=== PATIENT | male | born 1970 | race Caucasian/White ===

== ENCOUNTER 2025-03-07 14:32 | Outpatient (AMB) | payer OTHER, SELFPAY ==
--- OUTSIDE RECORDS SUMMARY | 2025-03-06 14:44 | XMS_ITS | Encounter Summary ---
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 Phone MedinaadystephonPhan rueda Primary Care Provider [phone] Reason for Referral * Imaging (Routine) - Authorized Specialty Diagnoses / Procedures Referred By Contac t Referred To Contact Radiology Diagnoses Adenocarcinoma of right lung, stage 4 (CMS/HCC V24, CMS/HCC V28) Procedures CT Chest/Abdomen/Pelvis w Contrast Esau Stevens MD [address] [place] [address] Phone: tel: fax: [address] [address] Phone: tel: Referral ID Status Reason Start Date Expiration Date V isits Requested Visits Authorized [id number] Authorized 02/15/2025 02/15/2026 1 1 Reason for Visit * Imaging (Routine) - Authorized Specialty Diagnoses / Procedures Referred By Contac t Referred To Contact Radiology Diagnoses Adenocarcinoma of right lung, stage 4 (CMS/HCC V24, CMS/HCC V28) Procedures CT Chest/Abdomen/Pelvis w Contrast Esau Stevens MD [address] [place] [address] Phone: tel: fax: [facility] [address] [place] [address] Phone: tel: Referral ID Status Reason Start Date Expiration Date V isits Requested Visits Authorized [id number] Authorized 02/15/2025 02/15/2026 1 1 Encounter Details Date Type Department Care Team (Latest Contact Info) Description 03/06/2025 2:44 PM EDT - 03/06/2025 11:59 PM EDT Hospital Encounter [facility] CT Scan [address] [place] [address] Adenocarcinoma of right lung, stage 4 (CMS/HCC V24, CMS/HCC V28) Discharge Disposition: Home or Self Care Social History Tobacco Use Types Packs/Day Years [...] PM EST documented as of this encounter Medications at Time of Discharge acetaminophen (TYLENOL) 500 mg tablet Take 2 tablets (1,000 mg total) by mouth every 6 (six) hours if needed for mild pain. albuterol HFA (PROAIR HFA ; PROVENTIL HFA ; VENTOLIN HFA) 90 mcg/actuation inhaler Inhale 2 puffs by mouth every 6 (six) hours if needed for wheezing or shortness of breath. 3 each 3 02/28/2025 amLODIPine (NORVASC) 10 mg tablet Take 1 tablet (10 mg total) by mouth 1 (one) time each day. aspirin 81 mg EC tablet Take 1 tablet (81 mg total) by mouth 1 (one) time each day. 09/27/2021 cetirizine (ZyrTEC) 10 mg tablet Take 1 tablet (10 mg total) by mouth 1 (one) time each day. 04/24/2020 clonazePAM (KlonoPIN) 0.5 mg tablet Take 1 tablet (0.5 mg total) by mouth 2 times daily as needed. divalproex (DEPAKOTE) [address] tablet Take 2 tablets (1,000 mg total) by mouth 1 (one) time each day. folic acid (FOLVITE) 1 mg tablet TAKE 1 TABLET BY MOUTH EVERY DAY 90 tablet 1 11/30/2024 lisinopriL (PRINIVIL,ZESTRI L) 10 mg tablet Take 1 tablet (10 mg total) by mouth 1 (one) time each day. lovastatin (MEVACOR) 20 mg tablet Take 1 tablet (20 mg total) by mouth. oxyCODONE (ROXICODONE) 5 mg immediate release tabletIndication s:Adenocarcinoma of right lung, stage 4 (CMS/HCC V24, CMS/HCC V28) Take 1 tablet (5 mg total) by mouth every 6 (six) hours if needed for severe pain. Cancer patient with pain, partial fill allowed Max Daily Amount: 20 mg 80 tablet 07/01/2024 documented as of this encounter Discharge Disposition Disposition Code Departure Means Destination Home or Self Care documented in this encounter Plan of Treatment Upcoming Encounters Date Type Department Care Team (Late st Contact Info) Description 03/09/2025 3:45 PM EDT Office Visit [facility] Hematology Oncology [address] [place] [phone] Esau Stevens MD [address] [place] [address] 03/10/2025 8:00 AM EDT Appointment [address] [address] 03/31/2025 8:00 AM EDT Appointment [address] [address] 08/29/2025 2:45 PM EST Ancillary Procedure Pulmonol - [place] [address] [facility] [address] [place] [phone] 08/29/2025 3:30 PM EST Office Visit Pulmonolgy - [place] [address] [facility] [address] [place] [address] Jessica Magana MD [address] [facility] [address] [place] [address] documented as of this encounter Procedures Procedure Name Priority Date/Time Associated Diagnosis Comments CT CHEST/ABDOMEN/PELVI S W CONTRAST Routine 03/06/2025 3:21 PM EDT Adenocarcinoma of right lung, stage 4 (CMS/HCC V24, CMS/HCC V28) documented in this encounter Results * CT Chest/Abdomen/Pelvis w Contrast (03/06/2025 3:21 PM EDT) Anatomical Region Laterality Modality Body Computed Tomogra phy 03/07/2025 11:5 0 AM EDT Impressions 03/07/2025 12:20 PM EDT There is an irregular solid mass with spicules extending to the pleural reflection in the right upper lobe. The solid component has slightly increased in size. Fissural lymph nodes are not measurably enlarged but have increased. The known pleural metastasis is not measurable. Stable retrocaval pretracheal lymph node. No measurable disease in the abdomen or pelvis. Bilateral right greater than left femoral head avascular necrosis. -------- FINAL REPORT -------- Dictated By: Reji Petersen Dictated Date: 03/07/2025 11:50 ET Assigned Physician: Reji Petersen Reviewed and Electronically Signed By: Reji Petersen Signed Date: 03/07/2025 12:20 ET Workstation ID: [id number] Transcribed By: Self Edit Transcribed Date: 03/07/2025 11:50 ET Narrative 03/07/2025 12:20 PM EDT EXAMINATION: CT CHEST, ABDOMEN and PELVIS WITH CONTRAST CLINICAL INFORMATION: Metastatic lung cancer. Restaging. Right-sided VATS, right pleural biopsy and mediastinal lymphadenectomy on 02/15/[address] Cook and intraoperative findings included irregular pleural plaques on the posterior chest wall measuring up to 1.5 cm with satellite pleural plaques. Pathology revealed an invasive adenocarcinoma, morphologically and immunophenotypically compatible with the patient's lung primary, CK AE 1/3- positive, NLY-0-avdsslzs, y45-grszklwx, invading skeletal muscle focally and involving the cauterized and inked margins. A PD-L1 assay showed TPS 5. A KRAS exon 2 c.34G>T (p.G12 C) mutation was detected. EGFR, ALK, ROS-1, and BRAF alterations were not detected. 0 of 1 level R9 nodes were involved with tumor; 0 of 1 level R 8 nodes were involved with tumor; 0 of 1 level 7 nodes were involved with tumor; 0 of 1 level R4 nodes were involved with tumor. COMPARISON: Portions of previous 01/03/25 TECHNIQUE: Multidetector CT. Examination of the chest, abdomen and pelvis. Multidetector CT. Examination of the chest, abdomen and pelvis following IV administration of nonionic contrast. Reformatting in the coronal and sagittal planes. DLP: 1369 mGy-cm Dose optimization was performed including the use of low-dose iterative reconstruction technique with automatic exposure control based on patient size. Type of contrast: ISOVUE 370 Volume of IV contrast: 90 mL Volume of contrast discarded: 0 mL FINDINGS: LUNG: Irregular mostly solid mass posterior right upper lobe with spicules extending to the pleural reflections 03/06/25-3.2 x 1.8 cm () 01/03/25-2.9 x 1.7 cm (78) 07/21/24-2.2 x 1.3 cm () 11/26/23-2.5 x 1.2 cm (302/140) Subjectively, the solid component appears more prominent (). Slight pleural retraction. No suspicious abnormality of the trachea or mainstem bronchi. There is a broad-based pleural associated nodule at the confluence of the major and minor fissure on the right with a typical appearance of a lymph node. However, this has developed and/or increased 03/06/25-0.5 cm () 01/03/25-0.2 cm (3131) 07/21/24-not measurable 11/26/23-not measurable There is an adjacent similar but smaller nodule along the central aspect of the major fissure () There are some additional barely perceptible fissural lymph nodes more inferiorly in the midportion of the right major fissure (4/167) There are a few other scattered micronodules which are likely granulomata and are unchanged. MEDIASTINUM: Retrocaval pretracheal lymph node 02/04/25-1.2 cm (3/44) 01/03/25-1.2 cm 07/21/24-0.5 cm 11/26/23-0.5 cm There are a few additional nonenlarged but mildly prominent mediastinal lymph nodes. There are some mildly prominent right hilar lymph nodes (3/64) which are not significantly changed since most recent previous. CARDIAC: The heart is not enlarged. No pericardial fluid or thickening CORONARY CALCIFICATION: Moderate coronary calcification VASCULAR: There is no thoracic aortic aneurysm. The main pulmonary artery is normal caliber PLEURAL: Minimal areas of pleural thickening are not measurable. No convincing change. No significant pleural fluid or pneumothorax. AXILLA/CHEST WALL: There are no enlarged axillary lymph nodes. No chest wall mass demonstrated LIVER: No new suspicious focal liver lesion. Unchanged sharply circumscribed 1.0 cm low attenuating lesion in hepatic segment 2 is likely a cyst. No suspicious focal liver lesions. BILIARY TRACT: No opaque gallstone. No biliary dilation. SPLEEN: Normal size. No focal lesion. PANCREAS: No suspicious mass. No surrounding fluid. ADRENAL GLANDS: Unchanged mild nodularity at the apex of the right adrenal gland in the medial limb and apex of the left adrenal gland. KIDNEYS: No significant dilation of the intrarenal collecting system on either side. The kidneys enhance symmetrically. There is no suspicious renal mass. There is a nonobstructing 0.3 cm left renal calculus. GASTROINTESTINAL TRACT: Contrast has traversed the small bowel and entire colon. No definite bowel wall thickening. No suspicious abnormality the stomach. No omental or mesenteric mass. URINARY BLADDER: Mildly to moderately distended. No focal abnormality. PELVIC VISCERA: No suspicious abnormality. Unchanged calcifications base of penis. ABDOMINAL WALL: No significant hernia is appreciated. Small amount of fat protrudes into the umbilicus. LYMPHOVASCULAR STRUCTURES AND FLUID: There is no abdominal aortic aneurysm. There is arterial calcification. There are no measurably enlarged lymph nodes in the abdomen or pelvis. There is no free intraperitoneal fluid. MUSCULOSKELETAL: No acute or suspicious osseous abnormality. Avascular necrosis without significant collapse right greater than left femoral heads. Procedure Note Reji Petersen MD - 03/07/2025 EXAMINATION: CT CHEST, ABDOMEN and PELVIS WITH CONTRAST CLINICAL INFORMATION: Metastatic lung cancer. Restaging. Right-sided VATS, right pleuralbiopsy and mediastinal lymphadenectomy on 02/15/[address] Cook andintraoperative findings included irregular pleural plaques on theposterior chest wall measuring up to 1.5 cm with satellite pleuralplaques. Pathology revealed an invasive adenocarcinoma, morphologicallyand immunophenotypically compatible with the patient's lung primary, CK AE1/3-positive, ZIC-8-mgawqrnb, a60-mqtzsmut, invading skeletal musclefocally and involving the cauterized and inked margins. A PD-L1 assayshowed TPS 5. A KRAS exon 2 c.34G>T (p.G12 C) mutation was detected. EGFR,ALK, ROS-1, and BRAF alterations were not detected. 0 of 1 level R9 nodeswere involved with tumor; 0 of 1 level R 8 nodes were involved with tumor;0 of 1 level 7 nodes were involved with tumor; 0 of 1 level R4 nodes wereinvolved with tumor. COMPARISON: Portions of previous 01/03/25 TECHNIQUE: Multidetector CT. Examination of the chest, abdomen and pelvis. Multidetector CT. Examination of the chest, abdomen and pelvis followingIV administration of nonionic contrast. Reformatting in the coronal and sagittal planes. DLP: 1369 mGy-cm Dose optimization was performed including the use of low-dose iterativereconstruction technique with automatic exposure control based on patientsize. Type of contrast: ISOVUE 370 Volume of IV contrast: 90 mL Volume of contrast discarded: 0 mL FINDINGS: LUNG: Irregular mostly solid mass posterior right upper lobe with spiculesextending to the pleural reflections 03/06/25-3.2 x 1.8 cm () 01/03/25-2.9 x 1.7 cm () 07/21/24-2.2 x 1.3 cm () 11/26/23-2.5 x 1.2 cm (302/140) Subjectively, the solid component appears more prominent (/). Slightpleural retraction. No suspicious abnormality of the trachea or mainstem bronchi. There is a broad-based pleural associated nodule at the confluence of themajor and minor fissure on the right with a typical appearance of a lymphnode. However, this has developed and/or increased 03/06/25-0.5 cm (4/136) 01/03/25-0.2 cm (3/131) 07/21/24-not measurable 11/26/23-not measurable There is an adjacent similar but smaller nodule along the central aspectof the major fissure (4/135) There are some additional barely perceptible fissural lymph nodes moreinferiorly in the midportion of the right major fissure (4/167) There are a few other scattered micronodules which are likely granulomataand are unchanged. MEDIASTINUM: Retrocaval pretracheal lymph node 02/04/25-1.2 cm (3/44) 01/03/25-1.2 cm 07/21/24-0.5 cm 11/26/23-0.5 cm There are a few additional nonenlarged but mildly prominent mediastinallymph nodes. There are some mildly prominent right hilar lymph nodes(3/64) which are not significantly changed since most recent previous. CARDIAC: The heart is not enlarged. No pericardial fluid or thickening CORONARY CALCIFICATION: Moderate coronary calcification VASCULAR: There is no thoracic aortic aneurysm. The main pulmonary arteryis normal caliber PLEURAL: Minimal areas of pleural thickening are not measurable. Noconvincing change. No significant pleural fluid or pneumothorax. AXILLA/CHEST WALL: There are no enlarged axillary lymph nodes. No chestwall mass demonstrated LIVER: No new suspicious focal liver lesion. Unchanged sharplycircumscribed 1.0 cm low attenuating lesion in hepatic segment 2 is likelya cyst. No suspicious focal liver lesions. BILIARY TRACT: No opaque gallstone. No biliary dilation. SPLEEN: Normal size. No focal lesion. PANCREAS: No suspicious mass. No surrounding fluid. ADRENAL GLANDS: Unchanged mild nodularity at the apex of the right adrenalgland in the medial limb and apex of the left adrenal gland. KIDNEYS: No significant dilation of the intrarenal collecting system oneither side. The kidneys enhance symmetrically. There is no suspiciousrenal mass. There is a nonobstructing 0.3 cm left renal calculus. GASTROINTESTINAL TRACT: Contrast has traversed the small bowel and entirecolon. No definite bowel wall thickening. No suspicious abnormality thestomach. No omental or mesenteric mass. URINARY BLADDER: Mildly to moderately distended. No focal abnormality. PELVIC VISCERA: No suspicious abnormality. Unchanged calcifications baseof penis. ABDOMINAL WALL: No significant hernia is appreciated. Small amount of fatprotrudes into the umbilicus. LYMPHOVASCULAR STRUCTURES AND FLUID: There is no abdominal aorticaneurysm. There is arterial calcification. There are no measurably enlarged lymph nodes in the abdomen or pelvis. There is no free intraperitoneal fluid. MUSCULOSKELETAL: No acute or suspicious osseous abnormality. Avascularnecrosis without significant collapse right greater than left femoralheads. IMPRESSION: There is an irregular solid mass with spicules extending to the pleuralreflection in the right upper lobe. The solid component has slightly increased in size. Fissural lymph nodes are not measurably enlarged but have increased. Theknown pleural metastasis is not measurable. Stable retrocaval pretracheal lymph node. No measurable disease in the abdomen or pelvis. Bilateral right greater than left femoral head avascular necrosis. -------- FINAL REPORT -------- Dictated By: Reji Petersen Dictated Date: 03/07/2025 11:50 ET Assigned Physician: Reji Petersen Reviewed and Electronically Signed By: Reji Petersen Signed Date: 03/07/2025 12:20 ET Workstation ID: [id number] Transcribed By: Self Edit Transcribed Date: 03/07/2025 11:50 ET Esau Stevens MD IMG CT PROCEDURES Final Res ult documented in this encounter Visit Diagnoses Diagnosis Adenocarcinoma of right lung, stage 4 (CMS/HCC V24, CMS/HCC V28) documented in this encounter Administered Medications Inactive Administered Medications - up to 3 most recent administrations Medication Order MAR Action Action Date Dose Rate Site barium sulfate (READI-CAT 2) 2 % (w/v) suspension 900 mL 900 mL, oral, Once in imaging, Starting on Thu03/06/25 at 1505, For 1 dose Given 03/06/2025 3:17 PM EDT 900 mL iopamidoL (ISOVUE-370) 370 mg iodine /mL (76 %) injection 90 mL 90 mL, intravenous, Once in imaging, Starting on Thu03/06/25 at 1505, For 1 dose Given 03/06/2025 3:18 PM EDT 90 mL sodium chloride 0.9 % flush 10 mL 10 mL, intravenous, Once, On Thu03/06/25 at 1530, For 1 dose Given 03/06/2025 3:18 PM EDT 10 mL documented in this encounter Additional Health Concerns Assessment Noted Time PHQ-9 Depression Total Score: 0 09/23/19 25 8:00 AM EST documented as of this encounter Care Teams Reefer Truck Driver Relationship Specialty Start Date End Date Phan Rojo DO [address] [place] [phone] PCP - General Internal Medicine 08/13/20 documented as of this encounter
[2025-03-07 14:34] VITALS: BP 142/90; PULSE 88; RESP 16; O2SAT 95; BMI 29.8
--- NOTE | 2025-03-07 14:34 | MHC.OFFVIS ---
Vital Signs 03/07/25 14:34 Height 5 ft 9 in Weight 202 lb BMI 29.8 BP 142/90 H Blood Pressure Location Rt brachial Position Sitting Respiration 16 Pulse 88 Pulse Source Pulse Oximeter Pulse Oximetry (%) 95 Oxygen Delivery Method Room Air Intake Visit Reasons: Avascular necrosis of rt femur Project Planner Required: No Accompanied by: Self / Same As Patient Allergies moxifloxacin (From AVELOX) Allergy (Unknown, Verified 03/07/25 14:37) RASH Penicillins (PENICILLINS) Allergy (Unknown, Verified 03/07/25 14:37) UNKNOWN HPI Comments Details: The patient is a 54-year-old male presenting with right hip pain associated with early avascular necrosis. The pain began approximately six months ago, with a sudden onset, and is described as aching, stabbing, sharp, dull, sore, and heavy, with occasional tearing sensations. The pain is localized to the right hip, lateral hip, and right groin, and is exacerbated by certain movements such as standing up straight or leaning back or getting out of bed. The patient has been managing the pain with ibuprofen, Tylenol, oxycodone, and previously cannabis use for pain and sleep. He has been in self guided physical therapy and has undergone multiple massage therapies with mild relief. The patient has a significant medical history of stage 4 metastatic lung cancer, for which he underwent an upper right lobectomy last year and is currently receiving treatment with Keytruda every three weeks. He has a long history of smoking, having smoked for 39 and a half years, but has since quit. Imaging study reports reviewed via patient's portal have revealed bilateral femoral head avascular necrosis, with the right side being more affected, and degenerative arthritic changes in the right hip joint. Patient also underwent right hip MRI earlier this year at [facility] and was deemed non-surgical by [facility]. - Onset: Sudden onset approximately six months ago - Quality: Aching, stabbing, sharp, dull, sore, heavy, with occasional tearing sensations. - Severity: 4-7/10 in morning and evenings, during daytime 1-10 - Location: Right hip, lateral hip, and right groin - Exacerbating Factors: Standing up straight, leaning back, walking, external and internal rotations - Relieving Factors: Rest, oxycodone, activity modifications - Interference: Pain is particularly bad when getting up in the morning and affects sleep - Affect: Pain impacts sleep, requiring adjustments such as using a pillow between knees - Analgesia: Currently using ibuprofen, Tylenol, oxycodone for pain management - Adverse Effects: None reported - Activities of Daily Living: Pain affects ability to stand and move comfortably, particularly in the morning - Aberrant Drug Related Behaviors: None reported PFSH Medical History Primary cancer of right upper lobe of lung Adenocarcinoma of right lung Hx of diabetes mellitus Vitamin D deficiency Multiple pulmonary nodules Smoker Low testosterone Lumbar degenerative disc disease Bipolar 1 disorder Impulse disorder Hyperlipemia HTN (hypertension) Surgical History S/P lobectomy of lung H/O microdiscectomy S/P total knee arthroplasty S/P removal of lung S/P knee surgery S/P carpal tunnel release Review of Systems Const Details: - Musculoskeletal: Reports right hip pain with radiation into right groin, denies numbness or tingling - Neurological: Denies numbness or tingling, weakness, bladder or bowel dysfunction or saddle anesthesia - Respiratory: Reports history of lung cancer, currently undergoing treatment All systems reviewed & are unremarkable except as noted in HPI and below Physical Exam Vital Signs: Last Vital Signs Pulse 88 03/07/25 14:34 Resp 16 03/07/25 14:34 BP 142/90 H 03/07/25 14:34 Pulse Ox 95 03/07/25 14:34 Oxygen Delivery Method Room Air 03/07/25 14:34 BMI result Body Mass Index 29.8 General: Appears afebrile. Alert and oriented. Mood and affect appropriate. Follows and participates in conversation appropriately. Respiratory effort is unlabored. No cough. Able to transition from sit to stand unassisted. Ambulates with bilaterally normal heel strike and toe off. Back/Spine/Pelvis Other: Limited lumbar ROM due to mild to moderate pain. Demonstrates 5/5 strength of quadriceps bilaterally as well as flexion/dorsiflexion of bilateral feet against resistance. 2+ pedal pulses bilaterally. Straight leg rise with dorsiflexion negative bilaterally. +2 patellar and achilles reflexes bilaterally. Facet loading test positive bilaterally. Cruz?s test reproduces right hip but not buttock or low back pain. +FADIR. Moderate right groin pain with I/E right hip rotations. Valsalva maneuver negative. Cervical Spine: cervical ROM normal and No Cervical spine tenderness Thoracic/Lumbar Spine: thoracic and lumbar spine normal to inspection, No Thoracic/lumbar spine scar(s), thoraco-lumbar ROM normal, Lasegue's sign negative, straight leg raise negative bilaterally, No thoracic spinal tenderness and No lumbar spinal tenderness Sacroiliac joints: bilaterally nontender Extrem General: Yes capillary refill normal, Yes no clubbing, cyanosis or edema and Yes no calf tenderness Results Reviewed Results Reviewed: Pending reports from [facility] for right hip xrays, CT scan and MRI. Assessment & Plan Assessment & Plan (1) Avascular necrosis of bones of both hips: Code(s): M87.051 - Idiopathic aseptic necrosis of right femur; M87.052 - Idiopathic aseptic necrosis of left femur Category: Medical (2) Right hip pain: Code(s): M25.551 - Pain in right hip Category: Medical (3) Osteoarthritis of right hip: Code(s): M16.11 - Unilateral primary osteoarthritis, right hip Category: Medical Plan The plan for managing the patient's right hip pain due to avascular necrosis includes scheduling a right hip intra-articular steroidal fluoroscopy-guided injection to alleviate symptoms. Expectations, risks and benefits were reviewed. Patient is aware he will be contacted to schedule this procedure. If the injection does not provide sufficient relief, a follow-up with the pain management team will be considered for further evaluation and potential alternative interventions. All questions and concerns have been answered and patient agreed with the plan. Follow up after injection and sooner as needed. Patient was informed and verbally consented to the use of an ambient scribe for clinic note documentation during this visit. Patient Instructions: - Schedule an appointment for the intraarticular steroidal injection as discussed. - Follow up in one month after the injection to assess its effectiveness. - Report any changes in symptoms or new concerns to the healthcare provider. Coding Level of Care Code New Pt Level 4 (41648) Diagnoses Avascular necrosis of bones of both hips M87.051; M87.052 Right hip pain M25.551 Osteoarthritis of right hip M16.11
--- OUTSIDE RECORDS SUMMARY | 2025-03-07 15:46 | XMS_ITS ---
Author Organization [facility] Address [address] [place] [address] Care Team Providers Care Stopper Maker Helper Name Role Phone GeorginaPhan rueda Primary Care Provider [phone] Active Problems Problem Noted Date Diagnosed Date Adenocarcinoma of right lung, stage 4 03/10/2024 Current Oncology Plans [facility] OP PEMETREXED + CARBOPLATIN + PEMBROLIZUMAB X 4 CYCLES FOLLOWED BY PEMBROLIZUMAB MAINTENANCE* Plan Start Date:03/17/2024 Plan Provider:Esau Stevens MD Linked Problems Adenocarcinoma of right lung , stage 4 (HCC) Treatment Medications Current Day (Day 1 , Cycle 6 - Planned for 07/01/2024) Next Day (Day 1, Cycle 7 - Planned for 07/22/2024) albuterol (PROVENTIL)CARBOplatin (PARAPLATIN) chemo infusion (by AUC)cyanocobalamin (VITAMIN B12)dexamethasone (DECADRON)diphenhydrAMINE (BENADRYL)EPINEPHrinefamotidine (PF) (PEPCID)folic acid (FOLVITE)fosaprepitant IV Piggybackhydrocortisone (SOLU-CORTEF) IVpalonosetron (ALOXI)pembrolizumab (KEYTRUDA) infusionPEMEtrexed (ALIMTA) chemo infusionprochlorperazine (COMPAZINE)Saline Flush 0.9 %sodium chloride (NS) 0.9 %sodium chloride 0.9% bolus (NS) albuterol (PROVENTIL) nebulizer solution 2.5 mgcyanocobalamin (VITAMIN B12) injection 1,000 mcgdiphenhydrAMINE (BENADRYL) injection 50 mgEPINEPHrine (Anaphylaxis) (ADRENALIN) 1 mg/ml (1:1000) inj amp/vial 0.3 mgfamotidine (PEPCID) 20 mg in water for injection, sterile 5 mL Injectionhydrocortisone sodium succinate (Solu-CORTEF) injection (PF) 100 mgpembrolizumab (KEYTRUDA) 200 mg in sodium chloride (NS) 0.9 % 100 mL infusionSaline Flush 0.9 % injection 1 Syringesodium chloride 0.9% (NS) infusionsodium chloride 0.9% bolus (NS) 500 mL albuterol (PROVENTIL) nebulizer solution 2.5 mgdiphenhydrAMINE (BENADRYL) injection 50 mgEPINEPHrine (Anaphylaxis) (ADRENALIN) 1 mg/ml (1:1000) inj amp/vial 0.3 mgfamotidine (PEPCID) 20 mg in water for injection, sterile 5 mL Injectionhydrocortisone sodium succinate (Solu-CORTEF) injection (PF) 100 mgpembrolizumab (KEYTRUDA) 200 mg in sodium chloride (NS) 0.9 % 100 mL infusionSaline Flush 0.9 % injection 1 Syringesodium chloride 0.9% (NS) infusionsodium chloride 0.9% bolus (NS) 500 mL Past Plans No past plan information found. Radiation Treatments * No radiation treatments are documented for this patient in [facility]. Treatments may have been administered in another system.
== END 2025-03-07 15:02 | disposition home or self-care (01) ==
LOC: HO.PMC 14:32
PROVIDERS: PCP Internal Medicine; Referring Provider Internal Medicine; Visit Provider Nurse Practitioner Family
DX: M87.051 Idiopathic aseptic necrosis of right femur (principal); M87.052 Idiopathic aseptic necrosis of left femur; M25.551 Pain in right hip; M16.11 Unilateral primary osteoarthritis, right hip
CPT/HCPCS: 99204

== ENCOUNTER 2025-06-06 06:26 | Outpatient (REF) | payer OTHER, SELFPAY ==
--- NOTE | ~2025-06-06 | FL_ITS ---
EXAMINATION: XR FLUOROSCOPY WITH IMAGES CLINICAL INFORMATION: Hip pain COMPARISON: None available. TECHNIQUE: Fluoroscopy provided to: Dr. Wilkerson Fluoroscopy time: 0.2 minutes DAP: 159 mGycm2 Images: 4 FINDINGS: Fluoroscopy provided for right hip injection. Needle projected over the right hip joint. Small amount contrast was injected. See procedure report for details. FL/FL guidance in treatment room IMPRESSION: As above Electronically signed by: Tera Martinez MD 06/08/2025 07:56 AM EDT
--- OUTSIDE RECORDS SUMMARY | 2025-06-06 06:30 | XMS_ITS | Encounter Summary ---
Author Organization [facility] Address [address] [place] [address] Care Team Providers Care Gis Analyst Name Role Phone Phan Rojo DO Primary Care Provider [phone] Encounter Details Date Type Department Care Team Description 03/18/2024 Social Work [facility] Oncology Services [address] [place] [phone] Tip [facility] Social History Tobacco Use Types Packs/Day Years Used Date Smoking Tobacco: Every Day Cigarettes Smokeless Tobacco: Never Alcohol Use Standard Drinks/Week Comments Never 0 (1 standard drink = 0.6 oz pur e alcohol) Sex and Gender Information Value Date Recorded Sex Assigned at Not on file Gender Identity Not on file Sexual Orientation Not on file Job Start Date Occupation Industry Not on file Not on file Not on file documented as of this encounter Plan of Treatment Not on file documented as of this encounter Visit Diagnoses Not on filedocumented in this encounter Care Teams Gis Analyst Relationship Specialty Start Date End Date Phan Rojo DO [address] [place] [phone] PCP - General Internal Medicine 09/06/20 documented as of this encounter
--- OUTSIDE RECORDS SUMMARY | 2025-06-06 06:30 | XMS_ITS | Clinical Summary ---
Author Organization [facility] Address [address] [place], [place] [id number] Care Team Providers Care Shuffle Board Operator Name Role Phone Alia Phanrajiv ZIMMERMAN Primary Care Provider [phone] Allergies Active Allergy Reactions Criticality Noted Date Comments Moxifloxacin 01/28/2024 Penicillins 01/28/2024 Midazolam 01/28/2024 Medications Medication Sig Dispensed Refills Start Date End Date Status lisinopril (PRINIVIL,ZESTRIL) tablet 10 mg Take 1 tablet (10 mg total) by mouth daily. 0 Active amLODIPine (NORVASC) tablet 10 mg Take 1 tablet (10 mg total) by mouth daily. 0 Active Divalproex Sodium (DEPAKOTE PO) Take 1,000 mg by mouth daily. 0 Active lovastatin (MEVACOR) 20 MG tablet Take 1 tablet (20 mg total) by mouth every night at bedtime. 0 Active cetirizine (ZyrTEC ALLERGY) 10 MG tablet Take 1 tablet (10 mg total) by mouth daily. 0 Active aspirin EC 81 MG tablet Take 1 tablet (81 mg total) by mouth daily. 0 Active clonazePAM (KlonoPIN) 0.5 MG tablet Take 1 tablet (0.5 mg total) by mouth 2 (two) times a day as needed for anxiety. 0 Active dexamethasone (DECADRON) 4 MG tablet Take 2 tablets (8 mg total) by mouth every morning with breakfast. Start day after chemotherapy and take x 3 days 12 tablet 2 03/10/2024 Active Additional Information Patient not taking.Reason: Other, Reported on 06/10/2024 polyethylene glycol (MIRALAX) 17 g packet Take 17 g by mouth daily. 0 Active docusate sodium (COLACE) 100 MG capsule Take 1 capsule (100 mg total) by mouth 2 (two) times a day. 0 Active promethazine (PHENERGAN) 25 MG tablet Take 1 tablet (25 mg total) by mouth every 6 (six) hours as needed for nausea. 30 tablet 1 05/19/2024 Active folic acid (FOLVITE) tablet 1 mg TAKE 1 TABLET BY MOUTH EVERY DAY 90 tablet 1 06/03/2024 Active gabapentin (NEURONTIN) 100 MG capsule Take 1 capsule (100 mg total) by mouth 2 (two) times a day. 60 capsule 1 06/09/2024 Active Active Problems Problem Noted Date Diagnosed Date Adenocarcinoma of right lung, stage 4 03/10/2024 Social History Tobacco Use Types Packs/Day Years [...] file Not on file Not on file Last Filed Vital Signs Vital Sign Reading Time Taken Comments Blood Pressure 134/86 06/10/2024 8:07 AM EDT Pulse 84 06/10/2024 8:07 AM EDT Temperature 36.7 C (98.1 F) 06/10/2024 8:07 AM EDT Respiratory Rate 18 06/10/2024 8:07 AM EDT Oxygen Saturation 98% 06/10/2024 8:07 AM EDT Inhaled Oxygen Concentration - - Weight 90.7 kg (199 lb 15.3 oz) 06/10/2024 8:07 AM EDT Height 175.3 cm (5' 9 ) 06/09/2024 3:29 PM EDT Body Mass Index 29.53 06/09/2024 3:29 PM EDT Plan of Treatment Health Maintenance Due Date Last Done Comments Hepatitis B Vaccines (1 of 3 - 3-dose series) 1971 Hepatitis C Screening 1971 COVID-19 Vaccine (#1) 1976 Pneumococcal Vaccine (1 of 2 - PCV) 1977 Depression Screening 1983 BMI Counseling 1989 Preventative Health Evaluation 1989 Tobacco Cessation Counseling 1989 DTap / Tdap / Td (1 - Tdap) 1990 Shingrix-Zoster Vaccine (1 of 2) 1990 Colon Cancer Screening (Colonoscopy) 2016 Influenza Vaccine (#1) 2025 RSV Ped < 20 months Aged Out No longe r eligible based on patient's age to complete this topic Care Teams Shuffle Board Operator Relationship Specialty Start Date End Date Phan Rojo DO [address] [place] [phone] PCP - General Internal Medicine 09/06/20
--- OUTSIDE RECORDS SUMMARY | 2025-06-06 06:30 | XMS_ITS ---
Author Organization [facility] Address [address] [place] [address] Care Team Providers Care Pepper Picker Name Role Phone GeorginaPhan rueda Primary Care Provider [phone] Active Problems Problem Noted Date Diagnosed Date Adenocarcinoma of right lung, stage 4 03/10/2024 Current Oncology Plans [facility] OP PEMETREXED + CARBOPLATIN + PEMBROLIZUMAB X [...] treatments are documented for this patient in [facility]. Treatments may have been administered in another system.
== END 2025-06-06 06:27 | disposition home or self-care (01) ==
LOC: CF 06:26
PROVIDERS: Visit Provider Anesthesiology
DX: M16.11 Unilateral primary osteoarthritis, right hip (principal)
CPT/HCPCS: 20610; J2795; J3301; Q9967

== ENCOUNTER 2025-06-06 14:51 | Outpatient (AMB) | payer OTHER, SELFPAY ==
--- OUTSIDE RECORDS SUMMARY | 2024-05-20 07:55 | XMS_ITS | Encounter Summary ---
Author Organization [facility] [place] [address] Care Team Providers Care Rod Mill Operator Name Role Phone Phan Rojo Primary Care Provider [phone] Encounter Details Date Type Department Care Team [...] Care Team (Late st Contact Info) Description 06/15/2025 3:30 PM EDT Appointment [facility] Radiation Oncology [address] [place] [phone] Keesha Keyes NP [address] [place] [address] 06/22/2025 3:30 PM EST Office Visit [facility] Hematology Oncology [address] [place] [phone] Esau Stevens MD [address] [place] [phone] 06/23/2025 8:00 AM EST Appointment [facility] Infusion Center [address] [place] [phone] 07/12/2025 3:15 PM EST Office Visit [facility] Hematology Oncology [address] [place] [phone] Esau Stevens MD [address] [place] [phone] 08/03/2025 3:15 PM EST Office Visit [facility] Hematology Oncology [address] [place] [phone] Esau Stevens MD [address] [place] [phone] 08/29/2025 2:45 PM EST Ancillary Procedure Pulmonology - [place] [address] [phone] 08/29/2025 3:30 PM EST Office Visit Pulmonology - [place] [address] [phone] Jessica Magana MD [address] [phone] documented as of this encounter Visit Diagnoses Not on filedocumented in this encounter Care Teams Rod Mill Operator Relationship Specialty Start Date End Date Phan Rojo DO [address] [place] [phone] PCP - General Internal Medicine 08/13/20 documented as of this encounter
--- OUTSIDE RECORDS SUMMARY | 2024-06-09 15:19 | XMS_ITS | Encounter Summary ---
Author Organization [facility] Address [address] [place] [address] Care Team Providers Care Armored Cable Machine Operator Name Role Phone Phan Rojo DO Primary Care Provider [phone] Encounter Details Date Type Department Care Team (Late st Contact Info) Description 06/09/2024 3:19 PM EDT Hospital Encounter TH HISTORIC ENCOUNTER[facility] ONLY Esau Stevens MD [address] [place] [phone] Social History Tobacco Use Types Packs/Day Years [...] 01/06/2024 and the pathology showed an adenocarcinoma, [id number], Napsin A-positive, [id number]. 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 He has 1 son [...] with pleural metastases, PD-L1 TPS 5, KRAS [id number] We will start Keytruda/carboplatin/Alimta x 4 cycles, [...] Info) Description 06/15/2025 3:30 PM EDT Appointment [facility] Radiation Oncology [address] [place] [phone] Keesha Keyes NP [address] [place] [phone] 06/22/2025 3:30 PM EST Office Visit [facility] Hematology Oncology [address] [place] [phone] Esau Stevens MD [address] [place] [phone] 06/23/2025 8:00 AM EST Appointment [facility] Infusion Center [address] [place] [phone] 07/12/2025 3:15 PM EST Office Visit [facility] Hematology Oncology [address] [place] [phone] Esau Stevens MD [address] [place] [phone] 08/03/2025 3:15 PM EST Office Visit [facility] Hematology Oncology [address] [place] [phone] Esau Stevens MD [address] [place] [phone] 08/29/2025 2:45 PM EST Ancillary Procedure Pulmonology - [address] [phone] 08/29/2025 3:30 PM EST Office Visit Pulmonology - [address] [phone] Jessica Magana MD [address] [address] documented as of this encounter Procedures Procedure [...] on filedocumented in this encounter Care Teams Armored Cable Machine Operator Relationship Specialty Start Date End Date Phan Rojo DO [address] [place] [phone] PCP - General Internal Medicine 08/13/20 documented as of this encounter
--- OUTSIDE RECORDS SUMMARY | 2024-06-10 07:59 | XMS_ITS | Encounter Summary ---
Author Organization [facility] Address [address] [place] [address] Care Team Providers Care News Content Specialist Name Role Phone Phan Rojo Primary Care Provider [phone] Encounter Details Date Type Department Care Team [...] Info) Description 06/15/2025 3:30 PM EDT Appointment [facility] Radiation Oncology [address] [place] [phone] Keesha Keyes NP [address] [place] [phone] 06/22/2025 3:30 PM EST Office Visit [facility] Hematology Oncology [address] [place] [phone] Esau Stevens MD [address] [place] [phone] 06/23/2025 8:00 AM EST Appointment [facility] Infusion Center [address] [place] [phone] 07/12/2025 3:15 PM EST Office Visit [facility] Hematology Oncology [address] [place] [phone] Esau Stevens MD [address] [place] [phone] 08/03/2025 3:15 PM EST Office Visit [facility] Hematology Oncology [address] [place] [phone] Esau Stevens MD [address] [place] [phone] 08/29/2025 2:45 PM EST Ancillary Procedure Pulmonology - [address] [phone] 08/29/2025 3:30 PM EST Office Visit Pulmonology - [address] [phone] Jessica Magana MD [address] [address] documented as of this encounter Visit Diagnoses Not on filedocumented in this encounter Care Teams News Content Specialist Relationship Specialty Start Date End Date Phan Rojo DO [address] [place] [phone] PCP - General Internal Medicine 08/13/20 documented as of this encounter
--- OUTSIDE RECORDS SUMMARY | 2025-06-01 15:00 | XMS_ITS | Encounter Summary ---
Author Organization [facility] Address [address] [place] [address] Care Team Providers Care Vascular Technician Name Role Phone Phan Rojo DO Primary Care Provider [phone] Reason for Visit * Reason Comments Follow-up Encounter Details Date Type Department Care Team (Late st Contact Info) Description 06/01/2025 3:00 PM EDT Office Visit [facility] Hematology Oncology [address] [place] [address] Esau Stevens MD [address] [place] [address] Primary cancer of right upper lobe of lung (CMS/HCC V24, CMS/HCC V28) (Primary Dx) Social History Tobacco Use Types Packs/Day Years [...] Sign Reading Time Taken Comments Blood Pressure 132/77 06/01/2025 3:04 PM EDT Pulse 78 06/01/2025 3:04 PM EDT Temperature 36.2 C (97.1 F) 06/01/2025 3:04 PM EDT Respiratory Rate - - Oxygen Saturation 97% 06/01/2025 3:04 PM EDT Inhaled Oxygen Concentration - - Weight 93 kg (205 lb) 06/01/2025 3:04 PM EDT Height - - Body Mass Index 30.27 04/13/2025 8:42 AM EDT documented in this encounter Progress Notes * Esau Stevens MD - 06/01/2025 3:00 PM EDT Diagnosis/treatment: Metastatic lung adenocarcinoma with pleural metastases, PD-L1 TPS 5, KRAS G12C- mutated, diagnosed in 02/2024. He started Keytruda/carboplatin/Alimta on 03/18/2024 and completed 4 cycles. He started single agent Keytruda on 06/10/2024. He completed palliative radiation to 6000 cGy to a right upper lobelung mass on 05/10/2025 Interval history: The patient is a 54-year-old smoking gentleman who is followed with serial [...] 01/06/2024 and the pathology showed an adenocarcinoma, [id number], Napsin A-positive, [id number]. He underwent a colonoscopy on 01/15/2024 by [...] the patient's lung primary, CK AE 1/3-positive, [id number]-[id number], p40- negative, invading skeletal muscle focally and [...] were involved with tumor. He reports postthoracotomy pain, which has lessened. He trialed Tylenol without relief. He trialed gabapentin but had difficulty with side effects. He reports baseline left-sided tinnitus. He denies [...] 4, which provided near complete relief. He is tolerating Keytruda reasonably well. He reports moderate fatigue during week 3. He developed a constant dry mouth in early 08/2024, which has become more intermittent and more tolerable. He usesBiotene Mouthwash for Dry Mouth and XyliMelts with partial relief. He reports right hip pain since early 06/2024. An x-ray of the right hip on 07/01/2024 showed subtle sclerosis in both femoral heads and was otherwise unremarkable. He takes Tylenol Extra Strength 2 pills in the morning and ibuprofen 600 mg at nighttime with partial relief. He takes oxycodone 5 mg o ccasionally with complete relief. He has been evaluated by Orthopedics. A hip MRI without contrast of 09/25/2024 showed bilateral femoral head osteonecrosis, right greater than left, and a moderate right hip joint effusion with several small intra-articular loose bodies. He is followed by Pain Management. He is scheduled for cortisone injection into the right hip A C/A/P CT with IV contrast and without oral contrast on 07/21/2024 showed a stable 2.4 mm right upper lobe nodule with adjacent pleural thickening. A bone scan on 07/22/2024 showed mild increased uptake in the thoracotomy region and in the right hip and bilateral knees consistent with degenerative arthritic changes. He developed a URI in early 08/2024, which resolved. A chest x-ray 08/23/2024 was unremarkable. A C/A/P CT with IV contrast without oral contrast on 01/03/2025 showed equivocally larger 2.9 cm irregular right upper lobe nodule with adjacent pleural thickening and an enlarging 1.2 cm retrocaval pretracheal node and otherwise stable findings. A C/A/P CT with IV contrast and without oral contrast on 03/06/2025 showed an equivocally larger 3.2cm irregular right upper lobe nodule with adjacent pleural thickening, an 0.5 cm enlarging right fissural lymph node, and a stable 1.2 cm retrocaval pretracheal node. He completed palliative radiation to 6000 cGy to a right upper lobe lung mass on 05/10/2025 He denies headaches or visual changes. 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 He is . He has 1 son [...] Normal gait. Assessment/plan: The patient is a 54-year-old gentleman who presented in 02/2024 with a metastatic lung adenocarcinoma with pleural metastases, PD-L1 TPS 5, KRAS [id number] We started Keytruda/carboplatin/Alimta x 4 cycles, followed by Keytruda maintenance. I discussed potential adverse effects of carboplatin/Alimta, including fatigue, nausea, constipation, diarrhea, cytopenias, and infection. I discussed potential adverse effects [...] 4, which provided near complete relief. He is tolerating Keytruda reasonably well. He reports moderate fatigue during week 3. He developed a constant dry mouth in early 08/2024, which has become more intermittent and more tolerable. He usesBiotene Mouthwash for Dry Mouth and XyliMelts with partial relief. He reports right hip pain since early 06/2024. An x-ray of the right hip on 07/01/2024 showed subtle sclerosis in both femoral heads and was otherwise unremarkable. He takes Tylenol Extra Strength 2 pills in the morning and ibuprofen 600 mg at nighttime with partial relief. He takes oxycodone 5 mg o ccasionally with complete relief. He has been evaluated by Orthopedics. A hip MRI without contrast of 09/25/2024 showed bilateral femoral head osteonecrosis, right greater than left, and a moderate right hip joint effusion with several small intra-articular loose bodies. He is followed by Pain Management. He is scheduled for cortisone injection into the right hip. A C/A/P CT in early 07/2024 showed stable findings. A bone scan in early 07/2024 showed no evidence of neoplasm. A C/A/P CT in late 12/2024 showed an equivocally larger right upper lobe mass and an enlarging retrocaval pretracheal node. A C/A/P CT in late 02/2025 showed equivocally larger right upper lobe mass, an enlarging right fissural node, and a stable retrocaval pretracheal node. He completed palliative radiation to 6000 cGy to a right upper lobe lung mass on 05/10/2025 We will continue Keytruda. We will employ anti-KRAS G12C TKIs in the second line setting. He reports postthoracotomy pain, which has lessened. He trialed Tylenol without relief. He trialed gabapentin but had difficulty with side effects. Visit summary: The patient is a 54-year-old gentleman who presented in 02/2024 with metastatic lung adenocarcinoma.He tolerates Keytruda reasonably well. He reports fatigue during week 3. He reports a dry mouth, which has lessened and become more intermittent and tolerable. CTs in late 02/2025 showed an equivocally larger right upper lobe mass, enlarging right fissural node, and a stable pretracheal node. We will continue Keytruda. Underwent palliative radiation to the right upper lobe mass. He has had difficulty with right hip pain. Imaging showed bilateral femoral osteonecrosis, right greater than left. Hetakes Pat Tylenol and ibuprofen with partial relief. He takes oxycodone 5 mg occasionally with complete relief. He will receive a cortisone injection. This encounter is of high risk. The patient has a metastatic lung cancer, which is a life-threatening condition. He remains on Keytruda, which carries a risk of significant morbidity and mortality. documented in this encounter Plan of Treatment Upcoming Encounters Date Type Department Care Team (Late st Contact Info) Description 06/15/2025 3:[address] [facility] Radiation Oncology [address] [place] [phone] Keesha Keyes NP [address] [place] [phone] 06/22/2025 3:30 PM EST Office Visit [facility] Hematology Oncology [address] [place] [phone] Esau Stevens MD [address] [place] [phone] 06/23/2025 8:[address] [facility] In[facility] [address] [place] [phone] 07/12/2025 3:15 PM EST Office Visit [facility] Hematology Oncology [address] [place] [phone] Esau Stevens MD [address] [place] [phone] 08/03/2025 3:15 PM EST Office Visit [facility] Hematology Oncology [address] [place] [phone] Esau Stevens MD [address] [place] [phone] 08/29/2025 2:45 PM EST Ancillary Procedure Pulmonology - [place] [address] [phone] 08/29/2025 3:30 PM EST Office Visit Pulmonology - [place] [address] [phone] Jessica Magana MD [address] [phone] documented as of this encounter Visit Diagnoses Diagnosis Primary cancer of right upper lobe of lung (CMS/HCC V24, CMS/HCC V28)- Primary documented in this encounter Discontinued Medications Medication Sig Discontinue Reason Start Date End Da te aspirin 81 mg EC tablet Take 1 tablet (81 mg total) by mouth 1 (one) time each day. 09/27/2021 06/01/2025 documented as of this encounter Additional Health Concerns Assessment Noted Time PHQ-9 Depression Total Score: 0 09/23/19 25 8:00 AM EST documented as of this encounter Care Teams Vascular Technician Relationship Specialty Start Date End Date Phan Rojo DO [address] [place] [phone] PCP - General Internal Medicine 08/13/20 documented as of this encounter
--- OUTSIDE RECORDS SUMMARY | 2025-06-02 07:51 | XMS_ITS | Encounter Summary ---
Author Organization [facility] Address [address] [place] [address] Care Team Providers Care Uc Architect Name Role Phone Phan Rojo DO Primary Care Provider [phone] Reason for Visit * Episode Based Medications (Routine) - Authorized Specialty Diagnoses / Procedures Referred By Contgina t Referred To Contact Diagnoses Adenocarcinoma of right lung, stage 4 (CMS/HCC V24, CMS/HCC V28) Esau Stevens MD [address] [place] [phone] Phone: tel: fax: [address] [address] Phone: tel: fax: Referral ID Status Reason Start Date Expiration Date V isits Requested Visits Authorized [id number] Authorized 05/28/2024 05/28/2026 1 44 Encounter Details Date Type Department Care Team (Latest Contact Info) Description 06/02/2025 7:51 AM EDT - 06/02/2025 11:59 PM EDT Hospital Encounter [facility] [address] [place] [phone] Adenocarcinoma of right lung, stage 4 (CMS/HCC V24, CMS/HCC V28) (Primary Dx) Discharge Disposition: Home or Self Care Social [...] Sign Reading Time Taken Comments Blood Pressure 132/91 06/02/2025 8:04 AM EDT Pulse 84 06/02/2025 8:04 AM EDT Temperature 36.6 C (97.8 F) 06/02/2025 8:04 AM EDT Respiratory Rate - - Oxygen Saturation 98% 06/02/2025 8:04 AM EDT Inhaled Oxygen Concentration - - Weight - - Height - - Body Mass Index - - documented in this encounter Medications at Time of Discharge [...] by mouth 1 (one) time each day. cetirizine (ZyrTEC) 10 mg tablet Take 1 [...] Max Daily Amount: 20 mg 80 tablet 03/08/2025 documented as of this encounter Discharge Disposition Disposition Code Departure Means Destination Home or Self Care documented in this encounter Progress Notes * She Avendaño RN - 06/02/2025 8:00 AM EDT Pt arrives today for Pembro infusion. Pt reports feeling well overall. Pt reports 2/10 right hip pain, going for a cortisone injection on Thursday. Medications, allergies, labs, and assessment reviewed. Medication released to pharmacy. PIV inserted LEFT fa. Pembro infused over 30 min. Pt tolerated well. Appointments made for next treatment. Stable at discharge. documented in this encounter Plan of Treatment Upcoming Encounters Date Type Department Care Team (Late st Contact Info) Description 06/15/2025 3:30 PM EDT Appointment [facility] Radiation Oncology [address] [place] [phone] Keesha Keyes NP [address] [place] [address] 06/22/2025 3:30 PM EST Office Visit [facility] Hematology Oncology [address] [place] [phone] Esau Stevens MD [address] [place] [phone] 06/23/2025 8:00 AM EST Appointment [facility] Infusion Center [address] [facility] [address] [place] [phone] 07/12/2025 3:15 PM EST Office Visit [facility] Hematology Oncology [address] [place] [phone] Esau Stevens MD [address] [place] [phone] 08/03/2025 3:15 PM EST Office Visit [facility] Hematology Oncology [address] [place] [phone] Esau Stevens MD [address] [place] [phone] 08/29/2025 2:45 PM EST Ancillary Procedure Pulmonology - [address] [phone] 08/29/2025 3:30 PM EST Office Visit Pulmonology - [address] [phone] Jessica Magana MD [address] [phone] documented as of this encounter Visit Diagnoses Diagnosis Adenocarcinoma of right lung, stage 4 (CMS/HCC V24, CMS/HCC V28)- Primary documented in this encounter Administered Medications Inactive Administered Medications - up to 3 most recent administrations Medication Order MAR Action Action Date Dose Rate Site pembrolizumab (KEYTRUDA) 200 mg in sodium chloride 108 mL chemo IVPB 200 mg, intravenous, at 216 mL/hr, Administer over 30 Minutes, Once, On Thu06/02/25 at 0830, For 1 dose, Administer with a low protein binding 0.2-5 micron in-line filter.Indications:Adenocarci noma of right lung, stage 4 (CMS/HCC V24, CMS/HCC V28) New Bag 06/02/2025 8:57 AM EDT 200 mg 216 mL/hr documented in this encounter Orders Medications Ordered That Nhan ht Not Have Been Administered Count Last Ordered Date First Ordered Date pembrolizumab (KEYTRUDA) 200 mg in sodium chloride 108 mL chemo IVPB 1 06/02/2025 documented in this encounter Additional Health Concerns Assessment Noted Time PHQ-9 Depression Total Score: 0 09/23/19 25 8:00 AM EST documented as of this encounter Care Teams Uc Architect Relationship Specialty Start Date End Date Phan Rojo DO [address] [place] [phone] PCP - General Internal Medicine 08/13/20 documented as of this encounter
[2025-06-06 14:54] VITALS: BP 117/79; PULSE 75; RESP 16; O2SAT 99; BMI 29.8
--- NOTE | 2025-06-06 14:54 | A.OFFVIS_ITS ---
Vital Signs 06/06/25 14:54 06/06/25 15:02 Height 5 ft 9 in Weight 202 lb BMI 29.8 BP 117/79 138/90 H Blood Pressure Location Lt brachial Lt brachial Position Sitting Sitting Respiration 16 16 Pulse 75 73 Pulse Source Pulse Oximeter Pulse Oximeter Pulse Oximetry (%) 99 97 Oxygen Delivery Method Room Air Room Air Intake Visit Reasons: (R) Intra-Articular Hip Injection Allergies moxifloxacin (From AVELOX) Allergy (Unknown, Verified 03/07/25 14:37) RASH Penicillins (PENICILLINS) Allergy (Unknown, Verified 03/07/25 14:37) UNKNOWN PFSH Medical History Primary cancer of right upper lobe of lung Adenocarcinoma of right lung Hx of diabetes mellitus Vitamin D deficiency Multiple pulmonary nodules Smoker Low testosterone Lumbar degenerative disc disease Bipolar 1 disorder Impulse disorder Hyperlipemia HTN (hypertension) Surgical History S/P lobectomy of lung H/O microdiscectomy S/P total knee arthroplasty S/P removal of lung S/P knee surgery S/P carpal tunnel release Physical Exam Vital Signs: Last Vital Signs Pulse 73 06/06/25 15:02 Resp 16 06/06/25 15:02 BP 138/90 H 06/06/25 15:02 Pulse Ox 97 06/06/25 15:02 Oxygen Delivery Method Room Air 06/06/25 15:02 BMI result Body Mass Index 29.8 Assessment & Plan Assessment & Plan (1) Osteoarthritis of right hip: Code(s): M16.11 - Unilateral primary osteoarthritis, right hip Category: Medical (2) Right hip pain: Code(s): M25.551 - Pain in right hip Category: Medical Plan intra-articular right hip steroid injection. Informed consent was explained to the patient. All questions were explained and? answered. The discussion about possible obscure and indolent infection in the right hip was held before the procedure.? The patient was taken inside the operating room where she was positioned left lateral decubitus on the operating table.? Time-out was performed delineating correct site, side, the nature of the procedure, patient's allergy, preoperative antibiotic if needed.? All operating room staff was participating in OR time-out procedure.? The patient stated his name. Non dependent right hip was prepped with ChloraPrep and draped with sterile towels.? The C-arm was brought over the operating field and the picture of bilateral hip joints were obtained on the screen.? The right hip joint was chosen as the target for the injection.? The trochanter position was noted on the screen.? The projection of the trochanter to the skin was noted, the direction of the femoral neck was noted.? The skin was anesthetized using 2% lidocaine at the trochanter area.? 18 gauge 6 inch needle was inserted through the skin and advanced to the hip joint silhouette on under intermittent lateral and anterior posterior views.? When needle entered the Silhouette of the joint the injection of the contrast was performed demonstrating intra- articular spread of the contrast.? After that 6 cc of ropivacaine 0.5% mixed with Kenalog 40 mg was injected into the joint.? The needle was removed sterile dressing was applied. The patient tolerated procedure well. Orders: Orders FL guidance in treatment room 06/06/25 M25.551 - Pain in right hip Coding Level of Care Code Procedure Only Diagnoses Osteoarthritis of right hip M16.11 Right hip pain M25.551
[2025-06-06 15:02] VITALS: BP 138/90; PULSE 73; RESP 16; O2SAT 97
--- OUTSIDE RECORDS SUMMARY | 2025-06-06 20:03 | XMS_ITS | Encounter Summary ---
Author Organization [facility] Address [address] [place] [address] Care Team Providers Care Baby Stroller Rental Clerk Name Role Phone Phan Rojo DO Primary Care Provider [phone] Encounter Details Date Type Department Care Team Description 03/18/2024 Social Work [facility] Oncology Services [address] [place] [phone] Tip Younger [facility] [place] Tobacco Use Types Packs/Day Years [...] on filedocumented in this encounter Care Teams Baby Stroller Rental Clerk Relationship Specialty Start Date End Date Phan Rojo DO [address] [place] [phone] PCP - General Internal Medicine 09/06/20 documented as of this encounter
--- OUTSIDE RECORDS SUMMARY | 2025-06-06 20:03 | XMS_ITS | Encounter Summary ---
Author Organization [facility] Address [address] [place] [address] Care Team Providers Care Engravings Polisher Name Role Phone Phan Rojo Primary Care Provider [phone] Encounter Details Date Type Department Care Team (Late Contact Info) Description 01/03/2025 Lab Requisition [facility] - Main Lab [address] [facility] [place] [address] Pam Tong NP [address] [place] [phone] Pain in throat Social History Tobacco Use Types Packs/Day Years Used Date Smoking Tobacco: Every Day Cigarettes 0.5 39.5 Started: 08/17/1984; Last attempted to quit: 02/15/2024 Smokeless Tobacco: Never Alcohol Use Standard Drinks/Week Comments Never 1 (1 standard drink = 0.6 oz pur e alcohol) Sex and Gender Information Value Date Recorded Sex Assigned at Male 07/01/2024 10:04 AM EST Legal Sex Male 10:51 PM EST Gender Identity Male 07/01/2024 10:04 AM EST Sexual Orientation Straight 09/15/2024 12 :26 PM EST documented as of this encounter Plan of Treatment Upcoming Encounters Date Type Department Care Team (Late Contact Info) Description 06/15/2025 3:30 PM EDT Appointment [facility] Radiation Oncology [address] [place] [phone] Keesha Keyes NP [address] [place] [address] [phone] 06/22/2025 3:30 PM EST Office Visit [facility] Hematology Oncology [address] [place] [phone] Esau Stevens MD [address] [place] [phone] 06/23/2025 8:00 AM EST Appointment [facility] Infusion Center [address] [place] [address] [phone] 07/12/2025 3:15 PM EST Office Visit [facility] Hematology Oncology [address] [place] [phone] Esau Stevens MD [address] [place] [phone] 08/03/2025 3:15 PM EST Office Visit [facility] Hematology Oncology [address] [place] [phone] Esau Stevens MD [address] [place] [phone] 08/29/2025 2:45 PM EST Ancillary Procedure Pulmonology - [address] [phone] 08/29/2025 3:30 PM EST Office Visit Pulmonology - [address] [phone] Jessica Magana MD [address] [place] [phone] documented as of this encounter Procedures Procedure Name Priority Date/Time Associated Diagnosis Comments CULTURE THROAT Routine 01/03/2025 11:00 AM EDT Pain in throat documented in this encounter Results * Culture throat (01/03/2025 11:00 AM EDT) Culture, Throat No pathogens isolated. 01/05/2025 10:54 AM EDT [facility] Swab Structure of anterior region of neck / Unknown 01/03/2025 11:00 AM EDT 01/03/2025 3:00 PM EDT us Orozco Tong STRESS TEST TECHNICIAN LAB MICROBIOLOGY - GENERAL ORDER JACKLYN Final Result [facility] [address] [place] [address], documented in this encounter Visit Diagnoses Diagnosis Pain in throat Throat pain documented in this encounter Additional Health Concerns Assessment Noted Time PHQ-9 Depression Total Score: 0 09/23/19 25 8:00 AM EST documented as of this encounter Care Teams Engravings Polisher Relationship Specialty Start Date End Date Phan Rojo DO [address] [place] [phone] PCP - General Internal Medicine 08/13/20 documented as of this encounter
--- OUTSIDE RECORDS SUMMARY | 2025-06-06 20:03 | XMS_ITS ---
Author Organization [facility] Address [address] [place] [address] Care Team Providers Care Internal Control Specialist Name Role Phone GeorginaPhan rueda Primary Care Provider [phone] Active Problems Problem Noted Date Diagnosed Date Adenocarcinoma of right lung, stage 4 03/10/2024 Current Oncology Plans [facility] OP PEMETREXED + CARBOPLATIN + PEMBROLIZUMAB X [...] treatments are documented for this patient in [facility]. Treatments may have been administered in another system.
--- OUTSIDE RECORDS SUMMARY | 2025-06-06 20:03 | XMS_ITS ---
Author Organization [facility] Address [address] [place] [address] Phone Care Team Providers Care Paediatrician Name Role Phone Phan Rojo DO Primary Care Provider [phone] Active Problems Problem Noted Date Diagnosed Date Adenocarcinoma of right lung , stage 4 (CMS/HCC V24, CMS/HCC V28) 03/10/2024 Primary cancer of right uppe r lobe of lung (CMS/HCC V24, CMS/HCC V28) 01/14/2024 Overview (05/04/2024): Last Assessment & Plan: Mr. Moore is a 53 yr. Male status post VATS [place] right pleural biopsy, mediastinal lymphadenectomy which was performed at [facility] on 02/15/2024 for a biopsy-proven adenocarcinoma of the right upper lobe. Unfortunately intraoperative discovery showed pleural plaques posteriorly on the chest wall with 1 measuring about a centimeter and a half and some satellite pleural plaques that were irregular as well and a vascularized. A frozen section on this before proceeding and this turned out to be metastatic cancer and the procedure was subsequently aborted as patient now had stage IV lung cancer where surgical resection is no longer applicable. Pleural biopsy final pathology did con back as invasive adenocarcinoma consitent with metastisis from his previous lung nodule biopsy.He has a F/U appointment with his medcal oncologist on 03/10/2024 while they wait for further molecular studies prior to starting treatment for hia stage IV adenocarcinoma of the lung. He was instructed that he no long er requires to follow with Thoracic ant this point and his further treatment and suveilence will now be fully managed by medical oncology. He has been taking tylenol 1000 mg every six hours with out much relief. He ran out of his oxycodone 5 mg tablets several days ago and is requesting a refill which I am happy to provide given his surgery was just 2 weeks ago. After checking [facility] I prescribed oxycodone 5 mg tablets to be used 1-2 tabs every 4 hrs as needed for pain.total supply #40. Current Treatment and Therapy Plans Pembrolizumab ( 21-day cycle, 200 mg )* Plan Start Date:06/09/2024 Plan Provider:Esau Stevens MD Linked Problems Adenocarcinoma of right lung , stage 4 (CMS/HCC V24, CMS/HCC V28) Treatment Medications pembrolizumab (KEYTRUDA)pembrolizumab (KEYTRUDA) chemo IVPB (adult) Past Treatment and Therapy Plans No past plan information found. Current Radiation Episodes * Radiation Therapy: LungOverview* First Treatment Date Latest Treatment Date Treatment Site Technique Goal Episode Provider 05/01/2025 05/09/2025 Lung Palliative Estefania Guevara MD * Linked Problems Treatment Courses* Course 1 05/01/2025 - 05/09/2025 Treatment Sites Treatment Period Fraction Dose Fractions Total Dose R Lung 05/01/2025 - 05/09/2025 750 / 750 cGy 7 / 8 5,250 / 6,000 cGy
--- OUTSIDE RECORDS SUMMARY | 2025-06-06 20:03 | XMS_ITS | Clinical Summary ---
Author Organization [facility] Address [address] [place] [address] Phone Care Team Providers [facility] Manager Name Role Phone Phan Rojo DO Primary Care Provider [phone] Allergies Active Allergy Reactions Criticality Noted Date Comments Midazolam 10/17/2021 Violent reaction 20 yrs ago Moxifloxacin 10/17/2021 Head to toe rash Penicillins 10/17/2021 Hands and feel skin peeled Medications amLODIPine (NORVASC) 10 mg tablet Take 1 tablet (10 mg total) by mouth 1 (one) time each day. Active cetirizine (ZyrTEC) 10 mg tablet Take 1 tablet (10 mg total) by mouth 1 (one) time each day. 04/24/20 20 Active clonazePAM (KlonoPIN) 0.5 mg tablet Take 1 tablet (0.5 mg total) by mouth 2 times daily as needed. Active divalproex (DEPAKOTE) [address] tablet Take 2 tablets (1,000 mg total) by mouth 1 (one) time each day. Active lovastatin (MEVACOR) 20 mg tablet Take 1 tablet (20 mg total) by mouth. Active lisinopriL (PRINIVIL,ZEST RIL) 10 mg tablet Take 1 tablet (10 mg total) by mouth 1 (one) time each day. Active acetaminophen (TYLENOL) 500 mg tablet Take 2 tablets (1,000 mg total) by mouth every 6 (six) hours if needed for mild pain. Active folic acid (FOLVITE) 1 mg tablet TAKE 1 TABLET BY MOUTH EVERY DAY 90 tablet 1 12/01/19 25 Active albuterol HFA (PROAIR HFA ; PROVENTIL HFA ; VENTOLIN HFA) 90 mcg/actuation inhaler Inhale 2 puffs by mouth every 6 (six) hours if needed for wheezing or shortness of breath. 3 each 3 02/29/20 25 026 Active oxyCODONE (ROXICODONE) 5 mg immediate release tabletIndicati ons:Adenocarci noma of right lung, stage 4 (CMS/HCC V24, CMS/HCC V28) Take 1 tablet (5 mg total) by mouth every 6 (six) hours if needed for severe pain. Cancer patient with pain, partial fill allowed Max Daily Amount: 20 mg 80 tablet 03/08/20 25 Active aspirin 81 mg EC tablet Take 1 tablet (81 mg total) by mouth 1 (one) time each day. 09/27/19 22 025 Discontinued Active Problems Problem Noted Date Diagnosed Date Adenocarcinoma of right lung , stage 4 (CMS/HCC V24, CMS/HCC V28) 03/10/2024 Primary cancer of right uppe r lobe of lung (CMS/HCC V24, CMS/HCC V28) 01/14/2024 Overview (05/04/2024): Last Assessment & Plan: Mr. Moore is a 53 yr. Male status post VATS [place] right pleural biopsy, mediastinal lymphadenectomy which was performed at [facility] on 02/15/2024 for a biopsy-proven adenocarcinoma [...] hrs as needed for pain.total supply #40. Encounters Date Type Department Care Team Description 06/02/2025 7:51 AM EDT - 06/02/2025 11:59 PM EDT Hospital Encounter [facility] [address] [place] [phone] Adenocarcinoma of right lung, stage 4 (CMS/HCC V24, CMS/HCC V28) (Primary Dx) Discharge Disposition: Home or Self Care 06/01/2025 3:00 PM EDT Office Visit [facility] Hematology [facility]cology [address] [place] [phone] Esau Stevens MD Primary cancer of right upper lobe of lung (CMS/HCC V24, CMS/HCC V28) (Primary Dx) 05/12/2025 7:48 AM EDT - 05/12/2025 11:59 PM EDT Hospital Encounter [facility] [address] [phone] Esau Stevens MD Adenocarcinoma of right lung, stage 4 (CMS/HCC V24, CMS/HCC V28) (Primary Dx) Discharge Disposition: Home or Self Care 05/11/2025 9:30 AM EDT Office Visit [facility] [address] [place] [phone] Esau Stevens MD Adenocarcinoma of right lung, stage 4 (CMS/HCC V24, CMS/HCC V28) (Primary Dx); Primary cancer of right upper lobe of lung (CMS/HCC V24, CMS/HCC V28) 05/10/2025 7:40 AM EDT - 05/10/2025 11:59 PM EDT Hospital Encounter [facility]iation [facility] [address] [place] [phone] Josiah Kohli MD Adenocarcinoma of right lung, stage 4 (CMS/HCC V24, CMS/HCC V28) (Primary Dx) Discharge Disposition: Home or Self Care 05/10/2025 7:19 AM EDT - 05/10/2025 11:59 PM EDT Hospital Encounter [facility] [address] [place] [phone] Josiah Kohli MD Discharge Disposition: Home or Self Care 05/09/2025 7:20 AM EDT - 05/09/2025 11:59 PM EDT Hospital Encounter [facility] [address] [place] [phone] Discharge Disposition: Home or Self Care 05/08/2025 7:25 AM EDT - 05/08/2025 11:59 PM EDT Hospital Encounter [facility] [address] [place] [phone] Discharge Disposition: Home or Self Care 05/05/2025 7:21 AM EDT - 05/05/2025 11:59 PM EDT Hospital Encounter [facility] [address] [place] [phone] Discharge Disposition: Home or Self Care 05/04/2025 3:31 PM EDT - 05/04/2025 11:59 PM EDT Hospital Encounter [facility] [address] [place] [phone] Josiah Kohli MD Adenocarcinoma of right lung, stage 4 (CMS/HCC V24, CMS/HCC V28) (Primary Dx) Discharge Disposition: Home or Self Care 05/04/2025 3:16 PM EDT - 05/04/2025 11:59 PM EDT Hospital Encounter [facility] [address] [place] [phone] Discharge Disposition: Home or Self Care 05/03/2025 3:23 PM EDT - 05/03/2025 11:59 PM EDT Hospital Encounter [facility] [address] [place] [phone] Discharge Disposition: Home or Self Care 05/02/2025 7:30 AM EDT - 05/02/2025 11:59 PM EDT Hospital Encounter [facility] [address] [place] [phone] Discharge Disposition: Home or Self Care 05/01/2025 7:35 AM EDT - 05/01/2025 11:59 PM EDT Hospital Encounter [facility] [address] [place] [phone] Josiah Kohli MD Discharge Disposition: Home or Self Care 05/01/2025 7:20 AM EDT - 05/01/2025 11:59 PM EDT Hospital Encounter [facility] [address] [place] [phone] Discharge Disposition: Home or Self Care 04/28/2025 11:20 AM EDT - 04/28/2025 11:59 PM EDT Hospital Encounter [facility] [address] [place] [phone] Discharge Disposition: Home or Self Care 04/21/2025 7:51 AM EDT - 04/21/2025 11:59 PM EDT Hospital Encounter [facility] [address] [place] [phone] Esau Stevens MD Adenocarcinoma of right lung, stage 4 (CMS/HCC V24, CMS/HCC V28) (Primary Dx) Discharge Disposition: Home or Self Care 04/20/2025 3:30 PM EDT Office Visit [facility] [address] [place] [phone] Esau Stevens MD Adenocarcinoma of right lung, stage 4 (CMS/HCC V24, CMS/HCC V28) (Primary Dx); Primary cancer of right upper lobe of lung (CMS/HCC V24, CMS/HCC V28) 04/20/2025 12:58 PM EDT - 04/20/2025 11:59 PM EDT Hospital Encounter [facility] [address] [place] [phone] Estefania Guevara MD Adenocarcinoma of right lung, stage 4 (CMS/HCC V24, CMS/HCC V28) Discharge Disposition: Home or Self Care 04/20/2025 12:12 PM EDT - 04/20/2025 11:59 PM EDT Hospital Encounter [facility] [address] [place] [phone] Adenocarcinoma of right lung, stage 4 (CMS/HCC V24, CMS/HCC V28) (Primary Dx) Discharge Disposition: Home or Self Care 04/13/2025 8:23 AM EDT - 04/13/2025 11:59 PM EDT Hospital Encounter [facility] [address] [place] [phone] Estefania Guevara MD Adenocarcinoma of right lung, stage 4 ([facility]/HCC V24, [facility]/HCC V28) (Primary Dx) Discharge Disposition: Home or Self Care 04/13/2025 8:23 AM EDT - 04/13/2025 11:59 PM EDT Hospital Encounter [facility] [address] [place] [phone] Discharge Disposition: Home or Self Care 04/06/2025 Telephone [facility] [address] [place] [phone] Edwige Rhodes MS 04/03/2025 Telephone [facility] [address] [place] [phone] Edwige Rhodes MS 03/31/2025 7:45 AM EDT - 03/31/2025 11:59 PM EDT Hospital Encounter [facility] [address] [place] [phone] Esau Stevens MD Adenocarcinoma of right lung, stage 4 ([facility]/HCC V24, CMS/HCC V28) (Primary Dx) Discharge Disposition: Home or Self Care 03/30/2025 2:15 PM EDT Office Visit [facility] [address] [place] [phone] Esau Stevens MD Adenocarcinoma of right lung, stage 4 (CMS/HCC V24, CMS/HCC V28) (Primary Dx) 03/10/2025 7:47 AM EDT - 03/10/2025 11:59 PM EDT Hospital Encounter [facility] [address] [phone] Adenocarcinoma of right lung, stage 4 (CMS/HCC V24, CMS/HCC V28) (Primary Dx) Discharge Disposition: Home or Self Care 03/09/2025 3:45 PM EDT Office Visit [facility] [address] [place] [phone] Esau Stevens MD Primary cancer of right upper lobe of lung ([facility]/HCC V24, CMS/[facility] V28) (Primary Dx) 03/06/2025 2:44 PM EDT - 03/06/2025 11:59 PM EDT Hospital Encounter [facility] CT Scan [address] [place] [phone] Adenocarcinoma of right lung, stage 4 ([facility]/HCC V24, [facility] V28) Discharge Disposition: Home or Self Care from Last 3 Months Surgical History Surgery Date Site/Laterality Comments CARPAL TUNNEL RELEASE Left PROCEDURE: MT NEUROPLASTY &/TRANSPOS MEDIAN NRV CARPAL TUNNE; COMMENT: x2 OTHER SURGICAL HISTORY Right PROCEDURE: MT ANESTH OPEN/SURG ARTHRS TOTAL KNEE ARTHROPLASTY OTHER SURGICAL HISTORY PROCEDURE: MT DISCECTOMY ANT DCMPRN CORD CERVICAL 1 NTRSPC; COMMENT: microdiscectomy OTHER SURGICAL HISTORY 02/15/2024 Right PROCEDURE: MT THORACOSCOPY W/LOBECTOMY SINGLE LOBE; COMMENT: RUL Lobectomy KNEE DISLOCATION SURGERY 1986 PROCEDURE:KNEE DISLOCATION SURGERY OTHER SURGICAL HISTORY 2021 PROCEDURE:ENDOSCOPIC MICRODISCECTOMY LUMBAR WRIST SURGERY 2020 PROCEDURE:WRIST SURGERY LUNG REMOVAL, PARTIAL PROCEDURE:LUNG REMOVAL, PARTIAL Medical History Medical History Date Comments Essential hypertension DX:Essent ial hypertension Hyperlipidemia DX:Hyperlipidemi a Asthma DX:Asthma Bipolar 1 disorder (CMS/HCC V24, [facility] V28) DX:Bipolar 1 disorder (HCC) Ascending aorta dilation ([facility] V24) DX:Ascending aorta dilation (HCC) Diastolic heart failure (CMS /HCC V24, [facility] V28) DX:Diastolic heart failure ( HCC) Primary cancer of right uppe r lobe of lung ([facility] V24, [facility] V28) 01/14/2024 DX:Primary cancer of r ight upper lobe of lung (HCC) COPD (chronic obstructive pu lmonary disease) ([facility] V24, [facility] V28) DX:COPD (chronic o bstructive pulmonary disease) ([facility]) Hypertension DX:Hypertension Depression DX:Depression Family History Medical History Relation Name Comments Diabetes Aunt COPD Father Lung cancer Father Hyperlipidemia Mother Hypertension Mother Lung cancer Mother Coronary artery disease Paternal Grandfather COPD Uncle Relation Name Status Comments Aunt Alive Father Mother Paternal Grandfather Uncle Alive Social History Tobacco Use Types Packs/Day Years Used Date Smoking Tobacco: Every Day Cigarettes 0.5 39.5 Started: 08/17/1984; Last attempted to quit: 02/15/2024 Passive Smoke Exposure: Past Smokeless Tobacco: Never Tobacco Cessation:Ready to Q uit: Not Asked; Counseling Given: Not Answered Alcohol Use Standard Drinks/Week Comments Never 1 (1 standard drink = 0.6 oz pur e alcohol) Sex and Gender Information Value Date Recorded Sex Assigned at Male 07/01/2024 10:04 AM EST Legal Sex Male 10:51 PM EST Gender Identity Male 07/01/2024 10:04 AM EST Sexual Orientation Straight 09/15/2024 12 :26 PM EST Obstetrics History Last Filed Vital Signs Vital Sign Reading Time Taken Comments Blood Pressure 132/91 06/02/2025 8:04 AM EDT Pulse 84 06/02/2025 8:04 AM EDT Temperature 36.6 C (97.8 F) 06/02/2025 8:04 AM EDT Respiratory Rate 18 05/12/2025 8:07 AM EDT Oxygen Saturation 98% 06/02/2025 8:04 AM EDT Inhaled Oxygen Concentration - - Weight 93 kg (205 lb) 06/01/2025 3:04 PM EDT Height 175.3 cm (5' 9 ) 04/13/2025 8:42 AM EDT Body Mass Index 30.27 04/13/2025 8:42 AM EDT Plan of Treatment Upcoming Encounters Date Type Department Care Team (Late st Contact Info) Description 06/15/2025 3:30 PM EDT Appointment [facility] [address] [place] [phone] Keesha Keyes NP [address] [place] [address] 06/22/2025 3:30 PM EST Office Visit [facility] [address] [place] [phone] Esau Stevens MD [address] [place] [phone] 06/23/2025 8:00 AM EST Appointment [facility] [address] [place] [phone] 07/12/2025 3:15 PM EST Office Visit [facility] [address] [place] [phone] Esau Stevens MD [address] [place] [phone] 08/03/2025 3:15 PM EST Office Visit [facility] [address] [place] [phone] Esau Stevens MD [address] [place] [phone] 08/29/2025 2:45 PM EST Ancillary Procedure Pulmonology - [address] [phone] 08/29/2025 3:30 PM EST Office Visit Pulmonology [address] [phone] Jessica Magana MD [address] [phone] Health Maintenance Due Date Last Done Comments Colorectal Cancer Screening: Colonoscopy 1971 COVID-19 Vaccine (#1) 1976 DTaP,Tdap,and Td Vaccines (1 - Tdap) 1990 Hepatitis B Vaccines (1 of 3 - 19+ 3-dose series) 1990 Pneumococcal Vaccine: 50+ Years (1 of 2 - PCV) 1990 Zoster Vaccines (1 of 2) 1990 RSV Immunization Adult Patients (1 - Risk 50-74 years 1-dose series) 2021 HIV Screening 07/20/2022 Hepatitis C Screening 07/20/2022 Social Influencers of Health Screening 07/20/2022 Influenza Vaccine (#1) 2025 Hypertension/CHF/CAD Annual BMP Blood Test 06/01/2026 06/01/2025, 05/11/2025, 04/20/2025, Additional history exists Cholesterol Screening (Lipid Panel) 11/18/2029 11/18/2024 Depression Screening Completed 09/23/2024 HIB Vaccines Aged Out No longer eligi ble based on patient's age to complete this topic HPV Vaccines Aged Out No longer eligi ble based on patient's age to complete this topic Hepatitis A Vaccines Aged Out No long er eligible based on patient's age to complete this topic IPV Vaccines Aged Out No longer eligi ble based on patient's age to complete this topic MMR Vaccines Aged Out No longer eligi ble based on patient's age to complete this topic Meningococcal ACWY Vaccine Aged Out N o longer eligible based on patient's age to complete this topic Meningococcal B Vaccine Aged Out No l onger eligible based on patient's age to complete this topic RSV Immunization Patients Under 20 months Aged Out No longer eligible based on patient's age to complete this topic Varicella Vaccines Aged Out No longer eligible based on patient's age to complete this topic Procedures Procedure Name Priority Date/Time Associated Diagnosis Comments CBC WITH AUTO DIFFERENTIAL Routine 06/01/2025 3:37 PM EDT Adenocarcinoma of right lung, stage 4 (CMS/HCC V24, CMS/HCC V28) Primary cancer of right upper lobe of lung (CMS/HCC V24, CMS/HCC V28) THYROID STIMULATING HORMONE Routine 06/01/2025 3:37 PM EDT Adenocarcinoma of right lung, stage 4 (CMS/HCC V24, CMS/HCC V28) Primary cancer of right upper lobe of lung (CMS/HCC V24, CMS/HCC V28) CBC AND DIFFERENTIAL Routine 06/01/2025 3:37 PM EDT Adenocarcinoma of right lung, stage 4 (CMS/HCC V24, CMS/HCC V28) Primary cancer of right upper lobe of lung (CMS/HCC V24, CMS/HCC V28) COMPREHENSIVE METABOLIC PANEL Routine 06/01/2025 3:37 PM EDT Adenocarcinoma of right lung, stage 4 (CMS/HCC V24, CMS/HCC V28) Primary cancer of right upper lobe of lung (CMS/HCC V24, CMS/HCC V28) CBC WITH AUTO DIFFERENTIAL Routine 05/11/2025 10:02 AM EDT Adenocarcinoma of right lung, stage 4 (CMS/HCC V24, CMS/HCC V28) THYROID STIMULATING HORMONE Routine 05/11/2025 10:02 AM EDT Adenocarcinoma of right lung, stage 4 (CMS/HCC V24, CMS/HCC V28) COMPREHENSIVE METABOLIC PANEL Routine 05/11/2025 10:02 AM EDT Adenocarcinoma of right lung, stage 4 (CMS/HCC V24, CMS/HCC V28) CBC AND DIFFERENTIAL Routine 05/11/2025 10:02 AM EDT Adenocarcinoma of right lung, stage 4 (CMS/HCC V24, CMS/HCC V28) RAD ONC MSQ TREATMENT SUMMARY Routine 05/09/2025 7:40 AM EDT RAD ONC MSQ TREATMENT SUMMARY Routine 05/08/2025 7:41 AM EDT RAD ONC MSQ TREATMENT SUMMARY Routine 05/05/2025 7:40 AM EDT RAD ONC MSQ TREATMENT SUMMARY Routine 05/04/2025 3:32 PM EDT RAD ONC MSQ TREATMENT SUMMARY Routine 05/03/2025 3:41 PM EDT RAD ONC MSQ TREATMENT SUMMARY Routine 05/02/2025 7:44 AM EDT RAD ONC MSQ TREATMENT SUMMARY Routine 05/01/2025 7:55 AM EDT CBC WITH AUTO DIFFERENTIAL Routine 04/20/2025 2:16 PM EDT Adenocarcinoma of right lung, stage 4 (CMS/HCC V24, CMS/HCC V28) THYROID STIMULATING HORMONE Routine 04/20/2025 2:16 PM EDT Adenocarcinoma of right lung, stage 4 (CMS/HCC V24, CMS/HCC V28) COMPREHENSIVE METABOLIC PANEL Routine 04/20/2025 2:16 PM EDT Adenocarcinoma of right lung, stage 4 (CMS/HCC V24, CMS/HCC V28) CBC AND DIFFERENTIAL Routine 04/20/2025 2:16 PM EDT Adenocarcinoma of right lung, stage 4 (CMS/HCC V24, CMS/HCC V28) CBC WITH AUTO DIFFERENTIAL Routine 03/30/2025 3:34 PM EDT Adenocarcinoma of right lung, stage 4 (CMS/HCC V24, CMS/HCC V28) THYROID STIMULATING HORMONE Routine 03/30/2025 3:34 PM EDT Adenocarcinoma of right lung, stage 4 (CMS/HCC V24, CMS/HCC V28) COMPREHENSIVE METABOLIC PANEL Routine 03/30/2025 3:34 PM EDT Adenocarcinoma of right lung, stage 4 (CMS/HCC V24, CMS/HCC V28) CBC AND DIFFERENTIAL Routine 03/30/2025 3:34 PM EDT Adenocarcinoma of right lung, stage 4 (CMS/HCC V24, CMS/HCC V28) CBC WITH AUTO DIFFERENTIAL Routine 03/09/2025 3:28 PM EDT Adenocarcinoma of right lung, stage 4 (CMS/HCC V24, CMS/HCC V28) THYROID STIMULATING HORMONE Routine 03/09/2025 3:28 PM EDT Adenocarcinoma of right lung, stage 4 (CMS/HCC V24, CMS/HCC V28) COMPREHENSIVE METABOLIC PANEL Routine 03/09/2025 3:28 PM EDT Adenocarcinoma of right lung, stage 4 (CMS/HCC V24, CMS/HCC V28) CBC AND DIFFERENTIAL Routine 03/09/2025 3:28 PM EDT Adenocarcinoma of right lung, stage 4 (CMS/HCC V24, CMS/HCC V28) CT CHEST/ABDOMEN/PELVIS W CONTRAST Routine 03/06/2025 3:21 PM EDT Adenocarcinoma of right lung, stage 4 (CMS/HCC V24, CMS/HCC V28) LIPID PANEL WITH REFLEX TO DIRECT LDL Routine 11/18/2024 1:35 PM EDT Routine general medical examination at a [facility] care facility HLD (hyperlipidemia) HTN (hypertension) Lung calcification COPD (chronic obstructive pulmonary disease) (CMS/HCC V24, CMS/HCC V28) Bipolar 1 disorder (CMS/HCC V24, CMS/HCC V28) from Last 3 Months or Most Recently Relevant to Health Maintenance Results * CBC auto differential (06/01/2025 3:37 PM EDT) Only the most recent of5 resultswithin the time period is included. WBC 6.6 4.8 - 10.8 K/mcL LAB HEMETOLOGY METHOD 06/01/2025 4:52 PM EDT [facility] RBC 5.00 4.50 - 5.50 M/mcL LAB HEMETOLOGY METHOD 06/01/2025 4:52 PM EDT [facility] Hemoglobin 14.4 13.5 - 17.5 g/dL LAB HEMETOLOGY METHOD 06/01/2025 4:52 PM EDT [facility] Hematocrit 42.7 42.0 - 54.0 % LAB HEMETOLOGY METHOD 06/01/2025 4:52 PM EDT [facility] MCV 86.1 79.0 - 98.0 FL LAB HEMETOLOGY METHOD 06/01/2025 4:52 PM EDT [facility] MCH 29.0 27.0 - 32.0 pcg LAB HEMETOLOGY METHOD 06/01/2025 4:52 PM EDT [facility] MCHC 33.7 32.0 - 37.0 g/dL LAB HEMETOLOGY METHOD 06/01/2025 4:52 PM EDT [facility] RDW 13.7 11.0 - 15.0 % LAB HEMETOLOGY METHOD 06/01/2025 4:52 PM EDT [facility] Platelets 353 130 - 400 K/mcL LAB HEMETOLOGY METHOD 06/01/2025 4:52 PM EDT [facility] MPV 9.2 7.0 - 11.0 FL LAB HEMETOLOGY METHOD 06/01/2025 4:52 PM EDT [facility] NRBC 0.0 <1.0 % LAB HEMETOLOGY METHOD 06/01/2025 4:52 PM EDT [facility] NRBC Absolute 0.00 <0.10 K/mcL LAB HEMETOLOGY METHOD 06/01/2025 4:52 PM EDT [facility] Neutrophils Relative 59.0 % LAB HEMETOLOGY METHOD 06/01/2025 4:52 PM EDT [facility] Lymphocytes Relative 25.4 % LAB HEMETOLOGY METHOD 06/01/2025 4:52 PM EDT [facility] Monocytes Relative 12.2 % LAB HEMETOLOGY METHOD 06/01/2025 4:52 PM EDT [facility] Eosinophils Relative 2.3 % LAB HEMETOLOGY METHOD 06/01/2025 4:52 PM EDT [facility] Basophils Relative 0.6 % LAB HEMETOLOGY METHOD 06/01/2025 4:52 PM EDT [facility] Immature Granulocytes Relative 0.5 % LAB HEMETOLOGY METHOD 06/01/2025 4:52 PM EDT [facility] Neutrophils Absolute 3.91 1.50 - 7.00 K/mcL LAB HEMETOLOGY METHOD 06/01/2025 4:52 PM EDT [facility] Lymphocytes Absolute 1.68 1.00 - 5.00 K/mcL LAB HEMETOLOGY METHOD 06/01/2025 4:52 PM EDT [facility] Monocytes Absolute 0.81 0.20 - 1.00 K/mcL LAB HEMETOLOGY METHOD 06/01/2025 4:52 PM EDT [facility] Eosinophils Absolute 0.15 0.00 - 0.50 K/mcL LAB HEMETOLOGY METHOD 06/01/2025 4:52 PM EDT [facility] Basophils Absolute 0.04 0.00 - 0.20 K/mcL LAB HEMETOLOGY METHOD 06/01/2025 4:52 PM EDT [facility] Immature Granulocytes Absolute 0.03 0.00 - 0.03 K/mcL LAB HEMETOLOGY METHOD 06/01/2025 4:52 PM EDT [facility] Blood Venous blood specimen / Unknown Venipuncture / Unknown 06/01/2025 3:37 PM EDT 06/01/2025 4:43 PM EDT us Esau Stevens MD LAB BLOOD ORDERABLES Final Result [facility] [address] [place] [address], * Thyroid stimulating hormone (06/01/2025 3:37 PM EDT) Only the most recent of5 resultswithin the time period is included. TSH 2.25 0.40 - 4.00 mcIU/mL LAB CHEMISTRY METHOD 06/01/2025 5:55 PM EDT [facility] Blood Venous blood specimen / Unknown Venipuncture / Unknown 06/01/2025 3:37 PM EDT 06/01/2025 4:40 PM EDT us Esau Stevens MD LAB BLOOD ORDERABLES Final Result [facility] [address] [place] [address], * Comprehensive metabolic panel (06/01/2025 3:37 PM EDT) Only the most recent of5 resultswithin the time period is included. Sodium 139 133 - 145 mmol/L LAB CHEMISTRY METHOD 06/01/2025 5:37 PM [facility] Potassium 4.2 3.5 - 5.5 mmol/L LAB CHEMISTRY METHOD 06/01/2025 5:37 PM [facility] Comment:Hemolysis present Chloride 106 96 - 110 mmol/L LAB CHEMISTRY METHOD 06/01/2025 5:37 PM [facility] CO2 25 21 - 32 mmol/L LAB CHEMISTRY METHOD 06/01/2025 5:37 PM [facility] Anion Gap 8 3 - 11 LAB CHEMISTRY METHOD 06/01/2025 5:37 PM [facility] Glucose 96 70 - 100 mg/dL LAB CHEMISTRY METHOD 06/01/2025 5:37 PM [facility] BUN 15 5 - 25 mg/dL LAB CHEMISTRY METHOD 06/01/2025 5:37 PM [facility] Creatinine 0.90 0.70 - 1.30 mg/dL LAB CHEMISTRY METHOD 06/01/2025 5:37 PM [facility] eGFR 102 >=60 mL/min/1. 73m2 LAB CHEMISTRY METHOD 06/01/2025 5:37 PM [facility] Comment:Calculation based on the Chronic Kidney Disease Epidemiology Collaboration (CKD-EPI) equation refit without adjustment for race. BUN/Creatinine Ratio 16.7 LAB CHEMISTRY METHOD 06/01/2025 5:37 PM EDT [facility] Calcium 9.0 8.5 - 10.5 mg/dL LAB CHEMISTRY METHOD 06/01/2025 5:37 PM EDT [facility] AST (SGOT) 20 10 - 42 unit/L LAB CHEMISTRY METHOD 06/01/2025 5:37 PM EDT [facility] ALT (SGPT) 31 10 - 60 unit/L LAB CHEMISTRY METHOD 06/01/2025 5:37 PM EDT [facility] Alkaline Phosphatase 74 42 - 121 unit/L LAB CHEMISTRY METHOD 06/01/2025 5:37 PM EDT [facility] Total Protein 6.4 6.0 - 8.0 g/dL LAB CHEMISTRY METHOD 06/01/2025 5:37 PM EDT [facility] Albumin 3.6 3.2 - 5.0 g/dL LAB CHEMISTRY METHOD 06/01/2025 5:37 PM EDT [facility] Total Bilirubin 0.3 0.0 - 1.4 mg/dL LAB CHEMISTRY METHOD 06/01/2025 5:37 PM EDT [facility] Blood Venous blood specimen / Unknown Venipuncture / Unknown 06/01/2025 3:37 PM EDT 06/01/2025 4:40 PM EDT us Esau Stevens MD LAB BLOOD ORDERABLES Final Result [facility] [address] [place] [address], * Rad Onc Msq Treatment Summary (05/09/2025 7:40 AM EDT) Treatment Site R Lung MOSAI Q RADIATION ONCOLOGY Course Number 1 MOSAIQ RADIATION ONCOLOGY Prescribed Fractional Dose 750 cGray MOSAIQ RADIATION ONCOLOGY Prescribed Total Dose 6,000 cGray MOSAIQ RADIATION ONCOLOGY Actual Fractions Delivered 7 MOSAIQ RADIATION ONCOLOGY Actual Session Delivered Dose 750 cGray MOSAIQ RADIATION ONCOLOGY Actual Total Dose 5,250 cGray MOSAIQ RADIATION ONCOLOGY Prescribed Technique VMAT MOSAIQ RADIATION ONCOLOGY Elapsed Days 8 MOSAIQ RADIATION ONCOLOGY Start Date 05/01/2025 MOSAIQ RADIATION ONCOLOGY Last Date 05/09/2025 MOSAIQ RADIATION ONCOLOGY Prescribed Number of Fractions 8 MOSAIQ RADIATION ONCOLOGY 05/09/2025 7:40 AM EDT Physician Radiation Oncology RADIATION ONCJULISSA GY ORDERABLES Final Result MOSAIQ RADIATION ONCOLOGY * Rad Onc Msq Treatment Summary (05/08/2025 7:41 AM EDT) [facility] [address] [facility] Treatment Site R Lung MOSAI Q RADIATION ONCOLOGY Course Number 1 MOSAIQ RADIATION ONCOLOGY Prescribed Fractional Dose 750 cGray MOSAIQ RADIATION ONCOLOGY Prescribed Total Dose 6,000 cGray MOSAIQ RADIATION ONCOLOGY Actual Fractions Delivered 6 MOSAIQ RADIATION ONCOLOGY Actual Session Delivered Dose 750 cGray MOSAIQ RADIATION ONCOLOGY Actual Total Dose 4,500 cGray MOSAIQ RADIATION ONCOLOGY Prescribed Technique VMAT MOSAIQ RADIATION ONCOLOGY Elapsed Days 7 MOSAIQ RADIATION ONCOLOGY Start Date 05/01/2025 MOSAIQ RADIATION ONCOLOGY Last Date 05/08/2025 MOSAIQ RADIATION ONCOLOGY Prescribed Number of Fractions 8 MOSAIQ RADIATION ONCOLOGY 05/08/2025 7:41 AM EDT Physician Radiation Oncology RADIATION ONCJULISSA GY ORDERABLES Final Result MOSAIQ RADIATION ONCOLOGY * Rad Onc Msq Treatment Summary (05/05/2025 7:40 AM EDT) [facility] [address] Treatment Site R Lung MOSAI Q RADIATION ONCOLOGY Course Number 1 MOSAIQ RADIATION ONCOLOGY Prescribed Fractional Dose 750 cGray MOSAIQ RADIATION ONCOLOGY Prescribed Total Dose 6,000 cGray MOSAIQ RADIATION ONCOLOGY Actual Fractions Delivered 5 MOSAIQ RADIATION ONCOLOGY Actual Session Delivered Dose 750 cGray MOSAIQ RADIATION ONCOLOGY Actual Total Dose 3,750 cGray MOSAIQ RADIATION ONCOLOGY Prescribed Technique VMAT MOSAIQ RADIATION ONCOLOGY Elapsed Days 4 MOSAIQ RADIATION ONCOLOGY Start Date 05/01/2025 MOSAIQ RADIATION ONCOLOGY Last Date 05/05/2025 MOSAIQ RADIATION ONCOLOGY Prescribed Number of Fractions 8 MOSAIQ RADIATION ONCOLOGY 05/05/2025 7:40 AM EDT Physician Radiation Oncology RADIATION ONCOLO GY ORDERABLES Final Result MOSAIQ RADIATION ONCOLOGY * Rad Onc Msq Treatment Summary (05/04/2025 3:32 PM EDT) [facility] [address] Treatment Site R Lung MOSAI Q RADIATION ONCOLOGY Course Number 1 MOSAIQ RADIATION ONCOLOGY Prescribed Fractional Dose 750 cGray MOSAIQ RADIATION ONCOLOGY Prescribed Total Dose 6,000 cGray MOSAIQ RADIATION ONCOLOGY Actual Fractions Delivered 4 MOSAIQ RADIATION ONCOLOGY Actual Session Delivered Dose 750 cGray MOSAIQ RADIATION ONCOLOGY Actual Total Dose 3,000 cGray MOSAIQ RADIATION ONCOLOGY Prescribed Technique VMAT MOSAIQ RADIATION ONCOLOGY Elapsed Days 3 MOSAIQ RADIATION ONCOLOGY Start Date 05/01/2025 MOSAIQ RADIATION ONCOLOGY Last Date 05/04/2025 MOSAIQ RADIATION ONCOLOGY Prescribed Number of Fractions 8 MOSAIQ RADIATION ONCOLOGY 05/04/2025 3:32 PM EDT Physician Radiation Oncology RADIATION ONCOLO GY ORDERABLES Final Result MOSAIQ RADIATION ONCOLOGY * Rad Onc Msq Treatment Summary (05/03/2025 3:41 PM EDT) [facility] [address] Treatment Site R Lung MOSAI Q RADIATION ONCOLOGY Course Number 1 MOSAIQ RADIATION ONCOLOGY Prescribed Fractional Dose 750 cGray MOSAIQ RADIATION ONCOLOGY Prescribed Total Dose 6,000 cGray MOSAIQ RADIATION ONCOLOGY Actual Fractions Delivered 3 MOSAIQ RADIATION ONCOLOGY Actual Session Delivered Dose 750 cGray MOSAIQ RADIATION ONCOLOGY Actual Total Dose 2,250 cGray MOSAIQ RADIATION ONCOLOGY Prescribed Technique VMAT MOSAIQ RADIATION ONCOLOGY Elapsed Days 2 MOSAIQ RADIATION ONCOLOGY Start Date 05/01/2025 MOSAIQ RADIATION ONCOLOGY Last Date 05/03/2025 MOSAIQ RADIATION ONCOLOGY Prescribed Number of Fractions 8 MOSAIQ RADIATION ONCOLOGY 05/03/2025 3:41 PM EDT Physician Radiation Oncology RADIATION ONCOLO GY ORDERABLES Final Result MOSAIQ RADIATION ONCOLOGY * Rad Onc Msq Treatment Summary (05/02/2025 7:44 AM EDT) [facility] [address] Treatment Site R Lung MOSAI Q RADIATION ONCOLOGY Course Number 1 MOSAIQ RADIATION ONCOLOGY Prescribed Fractional Dose 750 cGray MOSAIQ RADIATION ONCOLOGY Prescribed Total Dose 6,000 cGray MOSAIQ RADIATION ONCOLOGY Actual Fractions Delivered 2 MOSAIQ RADIATION ONCOLOGY Actual Session Delivered Dose 750 cGray MOSAIQ RADIATION ONCOLOGY Actual Total Dose 1,500 cGray MOSAIQ RADIATION ONCOLOGY Prescribed Technique VMAT MOSAIQ RADIATION ONCOLOGY Elapsed Days 1 MOSAIQ RADIATION ONCOLOGY Start Date 05/01/2025 MOSAIQ RADIATION ONCOLOGY Last Date 05/02/2025 MOSAIQ RADIATION ONCOLOGY Prescribed Number of Fractions 8 MOSAIQ RADIATION ONCOLOGY 05/02/2025 7:44 AM EDT Physician Radiation Oncology RADIATION ONCOLO GY ORDERABLES Final Result MOSAIQ RADIATION ONCOLOGY * Rad Onc Msq Treatment Summary (05/01/2025 7:55 AM EDT) [facility] [address] Treatment Site R Lung MOSAI Q RADIATION ONCOLOGY Course Number 1 MOSAIQ RADIATION ONCOLOGY Prescribed Fractional Dose 750 cGray MOSAIQ RADIATION ONCOLOGY Prescribed Total Dose 6,000 cGray MOSAIQ RADIATION ONCOLOGY Actual Fractions Delivered 1 MOSAIQ RADIATION ONCOLOGY Actual Session Delivered Dose 750 cGray MOSAIQ RADIATION ONCOLOGY Actual Total Dose 750 cGray MOSAIQ RADIATION ONCOLOGY Prescribed Technique VMAT MOSAIQ RADIATION ONCOLOGY Elapsed Days 0 MOSAIQ RADIATION ONCOLOGY Start Date 05/01/2025 MOSAIQ RADIATION ONCOLOGY Last Date 05/01/2025 MOSAIQ RADIATION ONCOLOGY Prescribed Number of Fractions 8 MOSAIQ RADIATION ONCOLOGY 05/01/2025 7:55 AM EDT Physician Radiation Oncology RADIATION ONCOLO GY ORDERABLES Final Result MOSAIQ RADIATION ONCOLOGY * CT Chest/Abdomen/Pelvis w Contrast (03/06/2025 3:21 [...] Signed Date: 03/07/2025 12:20 ET Workstation ID: [id number] Transcribed By: Self Edit Transcribed Date: 03/07/2025 [...] patient's lung primary, CK AE 1/3- positive, RVG-7-lnitpeuu, l54-xtxczemj, invading skeletal muscle focally and involving the [...] the central aspect of the major fissure (4/135) There are some [...] with the patient's lung primary, CK AE1/3-positive, PRS-9-vifiuvvt, u77-dpbgdihz, invading skeletal musclefocally and involving the cauterized [...] 1.7 cm (78) 07/21/24-2.2 x 1.3 cm (83) 11/26/23-2.5 x 1.2 cm (302/140) Subjectively, the solid component appears more prominent (). Slightpleural retraction. No suspicious abnormality of the [...] along the central aspectof the major fissure (/135) There are some additional barely perceptible fissural [...] Signed Date: 03/07/2025 12:20 ET Workstation ID: [id number] Transcribed By: Self Edit Transcribed Date: 03/07/2025 11:50 ET us Esau Stevens MD IMG CT PROCEDURES Final Res ult * (ABNORMAL) Lipid panel with reflex to direct LDL (11/18/2024 1:35 PM EDT) Cholesterol 195 0 - 200 mg/dL LAB CHEMISTRY METHOD 11/18/2024 3:48 PM EDT [facility] Triglycerides 174(H) 0 - 150 mg/dL LAB CHEMISTRY [facility] HDL 48 >=40 mg/dL LAB CHEMISTRY METHOD 11/18/2024 3:48 PM EDT [facility] LDL Calculated 112(H) 0 - 100 mg/dL LAB CHEMISTRY METHOD 11/18/2024 3:48 PM [facility] VLDL Cholesterol Eron 34.8 mg/dL LAB CHEMISTRY METHOD 11/18/2024 3:48 PM EDT [facility] Non HDL Chol. (LDL+VLDL) 147(H) <145 mg/dL LAB CHEMISTRY METHOD 11/18/2024 3:48 PM EDT [facility] Chol/HDL Ratio 4.1 0.0 - 4.4 LAB CHEMISTRY METHOD 11/18/2024 3:48 PM [facility] Blood Venous blood specimen / Unknown Venipuncture / Unknown 11/18/2024 1:35 PM EDT 11/18/2024 1:35 PM EDT us Orozco Tong AIRWAYS OPERATIONS SPECIALIST LAB BLOOD ORDERABLES Final Resul t [facility] [address] [place] [address], [place] [phone] from Last 3 Months or Most Recently Relevant to Health Maintenance Insurance [employer] Advance Directives Documents on File Type Date Recorded Patient Paraplanner Expl anation Health Care Decision (hx) 02/15/2024 HE ALTH CARE PROXY Health Care Decision (hx) 02/15/2024 HE ALTH CARE PROXY Health Care Decision (hx) 02/15/2024 HE ALTH CARE PROXY Health Care Decision (hx) 02/15/2024 HE ALTH CARE PROXY Health Care Decision (hx) 02/15/2024 HE ALTH CARE PROXY Health Care Decision (hx) 02/15/2024 HE ALTH CARE PROXY Health Care Decision (hx) 02/15/2024 HE ALTH CARE PROXY Care Teams Retirement Village Manager Relationship Specialty Start Date End Date Phan Rojo DO [address] [place] [phone] PCP - General Internal Medicine 08/13/20
--- OUTSIDE RECORDS SUMMARY | 2025-06-06 20:03 | XMS_ITS | Clinical Summary ---
Author Organization [facility] Address [address] [place], [place] [id number] Care Team Providers Care Supervisor Pumping Station Name Role Phone Alia Phanrajiv ZIMMERMAN Primary Care Provider [phone] Allergies Active Allergy Reactions Criticality Noted Date [...] age to complete this topic Care Teams Supervisor Pumping Station Relationship Specialty Start Date End Date Phan Rojo DO [address] [place] [phone] PCP - General Internal Medicine 09/06/20
== END 2025-06-06 15:09 | disposition home or self-care (01) ==
LOC: HO.PMCPRC 14:51
PROVIDERS: PCP Internal Medicine; Visit Provider Anesthesiology
DX: M16.11 Unilateral primary osteoarthritis, right hip (principal); M25.551 Pain in right hip
CPT/HCPCS: 20610; 77002

== ENCOUNTER 2025-07-04 14:46 | Outpatient (AMB) | payer OTHER, SELFPAY ==
--- OUTSIDE RECORDS SUMMARY | 2024-05-20 06:55 | XMS_ITS | Encounter Summary ---
Author Organization [facility] [place] [address] Care Team Providers Care Gold Stamper Name Role Phone Phan Rojo Primary Care Provider [phone] Encounter Details Date Type Department Care Team (Late st Contact Info) Description 05/20/2024 7:55 AM EDT Hospital Encounter TH HISTORIC ENCOUNTERS [facility] ONLY Social History Tobacco Use Types Packs/Day Years Used Date Smoking Tobacco: Every Day Cigarettes 0.5 39.5 Started: 08/17/1984; Last attempted to quit: 02/15/2024 Passive Smoke Exposure: Past Smokeless Tobacco: Never Alcohol Use Standard Drinks/Week Comments Never 1 (1 standard drink = 0.6 oz pur e alcohol) Sex and Gender Information Value Date Recorded Sex Assigned at Male 07/01/2024 10:04 AM EST Legal Sex Male 10:51 PM EST Gender Identity Male 07/01/2024 10:04 AM EST Sexual Orientation Straight 09/15/2024 12 :26 PM EST documented as of this encounter Last Filed Vital Signs Vital Sign Reading Time Taken Comments Blood Pressure - - Pulse - - Temperature - - Respiratory Rate - - Oxygen Saturation - - Inhaled Oxygen Concentration - - Weight 89.4 kg (197 lb) 05/19/2024 2:52 PM EDT Height 175.3 cm (5' 9 ) 05/19/2024 2:52 PM EDT Body Mass Index 29.09 05/19/2024 2:52 PM EDT documented in this encounter Progress Notes * Historical, Notes Results - 05/20/2024 8:00 AM EDT Patient arrives ambulatory for treatment. Patient reporting increased fatigue and nausea after his last cycle of treatment. Patient seen by Dr. Stevens yesterday who prescribed phenergan. Patient's appetite has returned. Patient's carbo updated with ost recent creatinine and plan signed by NILTON Denson. PIV inserted without incident. Patient pre-medicated and resting comfortably in chair with call frausto in reach. Patient ambulated to the bathroom independently multiple times. Patient rested during treatment. 1105-Patient completed treatment without incident. PIV removed-intact. Patient's next appointments scheduled and provided to him. Patient stable upon discharge. documented in this encounter Plan of Treatment Upcoming Encounters Date Type Department Care Team (Late st Contact Info) Description 07/12/2025 3:15 PM EST Office Visit [facility] Hematology Oncology [address] [place] [phone] Esau Stevens MD [address] [place] [phone] 07/14/2025 8:00 AM EST Appointment [facility] Infusion Center [address] [place] [phone] 08/03/2025 3:15 PM EST Office Visit [facility] Hematology Oncology [address] [place] [phone] Esau Stevens MD [address] [place] [phone] 08/24/2025 3:00 PM EST Office Visit [facility] Hematology Oncology [address] [place] [phone] Esau Stevens MD [address] [place] [phone] 08/29/2025 2:45 PM EST Ancillary Procedure Pulmonology - [place] [address] [phone] 08/29/2025 3:30 PM EST Office Visit Pulmonology - [place] [address] [phone] Jessica Magana MD [address] [place] [phone] 2025 3:00 PM EST Appointment [facility] Radiation Oncology [address] [place] [phone] Keesha Keyes, BRANDI [address] [place] [address] documented as of this encounter Visit Diagnoses Not on filedocumented in this encounter Care Teams Gold Stamper Relationship Specialty Start Date End Date Phan Rojo DO [address] [place] [phone] PCP - General Internal Medicine 08/13/20 documented as of this encounter
--- OUTSIDE RECORDS SUMMARY | 2024-06-09 14:19 | XMS_ITS | Encounter Summary ---
Author Organization [facility] Address [address] [place] [address] Care Team Providers Care Furnace Tender Name Role Phone Phan Rojo DO Primary Care Provider [phone] Encounter Details Date Type Department Care Team (Late st Contact Info) Description 06/09/2024 3:19 PM EDT Hospital Encounter TH HISTORIC ENCOUNTERS [facility] ONLY Esau Stevens MD [address] [place] [phone] Social History Tobacco Use Types Packs/Day Years [...] Sign Reading Time Taken Comments Blood Pressure 169/98 06/09/2024 3:29 PM EDT Sitting Right arm Pulse 87 06/09/2024 3:29 PM EDT Temperature - - Respiratory Rate - - Oxygen Saturation - - Inhaled Oxygen Concentration - - Weight 90.7 kg (199 lb 15.3 oz) 06/10/2024 8:07 AM EDT Height 175.3 cm (5' 9 ) 06/09/2024 3:29 PM EDT Body Mass Index 29.53 06/09/2024 3:29 PM EDT documented in this encounter Progress Notes * Esau Stevens MD - 06/09/2024 3:30 PM EDT Diagnosis/treatment: Metastatic lung adenocarcinoma with pleural metastases, PD-L1 TPS 5, KRAS G12C- mutated, diagnosed in 02/2024. He started Keytruda/carboplatin/Alimta on 03/18/2024 and completed 4 cycles. He started single agent Keytruda on 06/10/2024. Interval history: The patient is a 53-year-old smoking gentleman who is followed with serial CT scans for pulmonary nodules and a chest CT without IV contrast on 11/26/2023 showed a 3.1 cm by 1.7 cm right upper lobe mass, which was stable in size but had significantly increased density compared to a 08/13/2021 CT. A PET/CT on 12/20/2023 showed uptake in the 2.7 x 1.1 cm right upper lobe lung nodule with SUV max 2.6. There was no uptake in regional nodes. There was uptake in a short segment of wall thickening and luminal narrowing of the upper rectum with SUV max 3.5. He underwent a percutaneous core biopsy of theright upper lobe lung nodule on 01/06/2024 and the pathology showed an adenocarcinoma, [id number], Napsin A-positive, [id number]. He underwent a colonoscopy on 01/15/[address] Velasquez and a 0.9cm polyp was found at 40 cm proximal to the anus and was excised and the pathology revealed a tubular adenoma. Multiple small mouth diverticula found in the sigmoid colon. Nonbleeding external and internal hemorrhoids were found. He underwent a right-sided VATS, right pleural biopsy and mediastinal lymphadenectomy on 02/15/[address] Cook and intraoperative findings included irregular pleural plaques on the posterior chest wall measuring up to 1.5 cm with satellite pleural plaques and a biopsy was taken and the pathology revealed an invasive adenocarcinoma, morphologically and immunophenotypically compatible with the patient's lung primary, CK AE 1/3-positive, [id number], p40- negative, invading skeletal muscle focally and involving the cauterized and inked margins. A PD-L1 assay showed TPS 5. A KRAS exon 2 c.34G>T (p.G12 C) mutation was detected. EGFR, ALK, ROS-1, and BRAF alterations were not detected. 0 of1 level R9 nodes were involved with tumor; 0 of 1 level R 8 nodes were involved with tumor; 0 of 1 level 7 nodes were involved with tumor; 0 of 1 level R4 nodes were involved with tumor. He reports postthoracotomy pain. He trialed Tylenol without relief. He reports baseline left-sided tinnitus. He denies hearing loss. He tolerated Keytruda/carboplatin/Alimta cycles 1-2 reasonably well. He reported mild fatigue and mild asthenia x 10 days. He developed generalized headaches during cycle 1 weeks 2 and 3, which resolved and did not recur. A brain MRI with contrast on 04/15/2024 showed a 1.2 x 1.2 0.6 cm meningioma along the lateral left frontal convexity and was otherwise unremarkable. He developed nausea during week 1, not relieved by ondansetron, but relieved by Compazine. He had more difficulty tolerating Keytruda/carboplatin/Alimta cycle 3-4. He reported mild fatigue and mild asthenia x 10 days. He reported taste changes x 10 days. He had difficulty with nausea nausea x 10 days during cycle 3, not relieved by ondansetron or Compazine. I prescribed Phenergan 25 mg during cycle 4, which provided near complete relief. He denies headaches or visual changes. He denies cough, hemoptysis, or dyspnea on exertion. He denies nausea or abdominal pain. He denies unusual bone pain. He reports intact appetite and stable weight. Past medical history: COPD, asthma, hypertension, grade 1 diastolic heart failure, GERD, hyperlipidemia, bipolar disorder. Current medications: Lisinopril, Depakote, aspirin 81 mg, albuterol, Flonase, beclomethasone inhaler, cetirizine, lovastatin, amlodipine. Allergies: Avelox, penicillin, Versed. Family history: His father was diagnosed with lung cancer and at age 59 from a cancer. His mother was diagnosed with lung cancer and at age 63 from a cancer. His brother has no history of cancer. His son and 2 daughters have no history of cancer. 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 He is . He has 1 son and 2 daughters. He started smoking age 14 and smokes a pack a day. He drinks alcohol rarely. Review of systems: The remainder of a 10 point review of systems was unremarkable. Physical examination: HEENT: Sclerae anicteric, normal oropharyngeal membrane. Neck: No lymphadenopathy. Lungs: Clear to auscultation. Heart: No murmurs. Abdomen: Soft, nontender, no organomegaly or masses. Extremities: No edema. Skin: No rash. Neurologic: Normal gait. Assessment/plan: The patient is a 53-year-old gentleman who presented in 02/2024 with a metastatic lung adenocarcinoma with pleural metastases, PD-L1 TPS 5, KRAS [id number] We will start Keytruda/carboplatin/Alimta x 4 cycles, followed by Keytruda maintenance. I discussedpotential adverse effects of carboplatin/Alimta, including fatigue, nausea, constipation, diarrhea,cytopenias, and infection. I discussed potential adverse effects of Keytruda, including fatigue, nausea, diarrhea, rash, pruritus, arthralgias, and serious autoimmune events, including pneumonitis, hepatitis, colitis, hypothyroidism, panhypopituitarism, adrenal insufficiency, and diabetes. He tolerated Keytruda/carboplatin/Alimta cycles 1-2 reasonably well. He reported mild fatigue and mild asthenia x 10 days. He developed generalized headaches during cycle 1 weeks 2 and 3, which resolved and did not recur. A brain MRI with contrast on 04/15/2024 showed a 1.2 x 1.2 0.6 cm meningioma along the lateral left frontal convexity and was otherwise unremarkable. He developed nausea during week 1, not relieved by ondansetron, but relieved by Compazine. He had more difficulty tolerating Keytruda/carboplatin/Alimta cycle 3-4. He reported mild fatigue and mild asthenia x 10 days. He reported taste changes x 10 days. He had difficulty with nausea nausea x 10 days during cycle 3, not relieved by ondansetron or Compazine. I prescribed Phenergan 25 mg during cycle 4, which provided near complete relief. We will monitor CTs every 3-6 months. I ordered a restaging CT to be done during the next interval. We will employ anti-KRAS G12C TKIs in the second line setting. He reports postthoracotomy pain. He trialed Tylenol without relief. I prescribed gabapentin 100 mg twice daily. We will escalate the gabapentin as tolerated. This encounter is of high risk. The patient has a metastatic lung cancer, which is a life-threatening condition. He remains on Keytruda/carboplatin/Alimta, which carries a risk of significant morbidity mortality. documented in this encounter Plan of Treatment Upcoming Encounters Date Type Department Care Team (Late st Contact Info) Description 07/12/2025 3:15 PM EST Office Visit [facility] Hematology Oncology [address] [place] [phone] Esau Stevens MD [address] [place] [phone] 07/14/2025 8:00 AM EST Appointment [facility] Infusion Center [address] [place] [address] [address] [place] [phone] 08/03/2025 3:15 PM EST Office Visit [facility] Hematology Oncology [address] [place] [phone] Esau Stevens MD [address] [place] [phone] 08/24/2025 3:00 PM EST Office Visit [facility] Hematology Oncology [address] [place] [phone] Esau Stevens MD [address] [place] [phone] 08/29/2025 2:45 PM EST Ancillary Procedure Pulmonology - [address] [phone] 08/29/2025 3:30 PM EST Office Visit Pulmonology [address] [place] [phone] Jessica Magana MD [address] [place] [phone] 2025 3:00 PM EST Appointment [facility] Radiation Oncology [address] [place] [phone] Keesah Keyes NP [address] [place] [address] documented as of this encounter Procedures Procedure Name Priority Date/Time Associated Diagnosis Comments ..MISCELLANEOUS REFERENCE LAB TEST 06/09/2024 ..MISCELLANEOUS REFERENCE LAB TEST 06/09/2024 documented in this encounter Results * Miscellaneous reference lab test (06/09/2024) Provider Onbase MD LAB BLOOD ORDERABLES Final Re sult * Miscellaneous reference lab test (06/09/2024) us Provider Onbase MD LAB BLOOD ORDERABLES Final Re sult documented in this encounter Visit Diagnoses Not on filedocumented in this encounter Care Teams Furnace Tender Relationship Specialty Start Date End Date Phan Rojo DO [address] [place] [phone] PCP - General Internal Medicine 08/13/20 documented as of this encounter
--- OUTSIDE RECORDS SUMMARY | 2024-06-10 06:59 | XMS_ITS | Encounter Summary ---
Author Organization [facility] Address [address] [place] [address] Care Team Providers Care Cutting Table Operator Name Role Phone Phan Rojo Primary Care Provider [phone] Encounter Details Date Type Department Care Team (Late st Contact Info) Description 06/10/2024 7:59 AM EDT Hospital Encounter TH HISTORIC ENCOUNTERS [...] - Inhaled Oxygen Concentration - - Weight 91.3 kg (201 lb 3.2 oz) 06/09/2024 3:29 P M EDT Height 175.3 cm (5' 9 ) 06/09/2024 3:29 PM EDT Body Mass Index 29.71 06/09/2024 3:29 PM EDT documented in this encounter Progress Notes * Historical, Notes Results - 06/10/2024 8:00 AM EDT Arrived amb for pembro. Pt is still a little fatigued after going through chemo, stable assessment.Feeling well today. Labs from 06/09/24 reviewed. Has new script for gabapentin for some intermittent nerve pain in right mid chest. PIV placed. 0838 Pembro infusion started, call frausto in reach. 0915 Infusion complete, pt feeling well, next appt scheduled, left amb, stable at D/C. documented in this encounter Plan of Treatment Upcoming Encounters Date Type Department Care Team (Late st Contact Info) Description 07/12/2025 3:15 PM EST Office Visit [facility] Hematology Oncology [address] [place] [phone] Esau Stevens MD [address] [place] [phone] 07/14/2025 8:00 AM EST Appointment [facility] Infusion Center [address] [place] [address] [address] [place] [phone] 08/03/2025 3:15 PM EST Office Visit [facility] Hematology Oncology [address] [place] [phone] Esau Stevens MD [address] [place] [phone] 08/24/2025 3:00 PM EST Office Visit [facility] Hematology Oncology [address] [place] [phone] Esau Stevens MD [address] [place] [phone] 08/29/2025 2:45 PM EST Ancillary Procedure Pulmonology - [place] 175 [facility] [address] [place] [address] 08/29/2025 3:30 PM EST Office Visit Pulmonology - [place] 175 [facility] [address] [place] [phone] Jessica Magana MD [address] [place] [phone] 2025 3:00 PM EST Appointment [facility] Radiation Oncology [address] [place] [phone] Keesha Keyes NP [address] [place] [address] documented as of this encounter Visit Diagnoses Not on filedocumented in this encounter Care Teams Cutting Table Operator Relationship Specialty Start Date End Date Phan Rojo DO [address] [place] [phone] PCP - General Internal Medicine 08/13/20 documented as of this encounter
--- NOTE | 2025-07-04 14:52 | MHC.OFFVIS ---
Vital Signs 07/04/25 14:55 Height 5 ft 9 in Weight 208 lb BMI 30.7 BP 159/77 H Blood Pressure Location Lt brachial Position Sitting Pulse 76 Pulse Source Pulse Oximeter Pulse Oximetry (%) 98 Oxygen Delivery Method Room Air Intake Visit Reasons: S/P (R) Intra-Articular Hip Injection Intake Note: Pain today 2/10 Health Commissioner Required: No Accompanied by: Self / Same As Patient Allergies moxifloxacin (From AVELOX) Allergy (Unknown, Verified 07/04/25 14:56) RASH Penicillins (PENICILLINS) Allergy (Unknown, Verified 07/04/25 14:56) UNKNOWN HPI Comments Details: The patient is a 54-year-old male presenting for a one-month follow-up after a right intra-articular hip injection for chronic right hip pain. The chronic right hip pain, associated with early avascular necrosis, started this year. Prior to the injection, he managed the pain with ibuprofen, Tylenol, and oxycodone. Following the injection, the patient experienced significant pain relief, with no pain for the first couple of weeks. Over the last 10 days, he has had some recurrence of pain, rating it a 4-5/10, but notes it is nowhere near as severe as it was previously. He is currently managing the pain with ibuprofen as needed and has not been taking oxycodone. Functionally, he has noticed improvement, including walking more, not limping as much, and less pain with weight-bearing activities. Currently he rates right hip pain at 2/10. The patient has a history of lung cancer, status post right upper lobectomy. He is currently on Keytruda every three weeks and recently completed 10 treatments of radiation. A follow-up body scan is scheduled for the end of August to assess the effects of the radiation. He denies any breathing problems, coughing, or smoking. Denies any recent cough, cold, infection, fever or any significant changes in medical history since last office visit. - Analgesia: The patient reports his pain is 2/10, a significant improvement since his right hip injection. - He is currently managing his pain with ibuprofen as needed. - Activities of Daily Living: The patient reports he is walking more and without a limp since the injection. - He also has less pain with bending and weight bearing, and has fewer problems getting out of a car or bed. - Aberrant Drug-Related Behaviors: The patient has discontinued taking oxycodone and is taking only ibuprofen for pain. - He reports he still has some oxycodone left but does not want to take it unless he has to. Past Procedures: 06/06/25: Right intra-articular hip steroid [id number]% ongoing pain relief PRIOR: The patient is a 54-year-old male presenting with right hip pain associated with early avascular necrosis. The pain began approximately six months ago, with a sudden onset, and is described as aching, stabbing, sharp, dull, sore, and heavy, with occasional tearing sensations. The pain is localized to the right hip, lateral hip, and right groin, and is exacerbated by certain movements such as standing up straight or leaning back or getting out of bed. The patient has been managing the pain with ibuprofen, Tylenol, oxycodone, and previously cannabis use for pain and sleep. He has been in self guided physical therapy and has undergone multiple massage therapies with mild relief. The patient has a significant medical history of stage 4 metastatic lung cancer, for which he underwent an upper right lobectomy last year and is currently receiving treatment with Keytruda every three weeks. He has a long history of smoking, having smoked for 39 and a half years, but has since quit. Imaging study reports reviewed via patient's portal have revealed bilateral femoral head avascular necrosis, with the right side being more affected, and degenerative arthritic changes in the right hip joint. Patient also underwent right hip MRI earlier this year at [facility] and was deemed non-surgical by [facility]. - Onset: Sudden onset approximately six months ago - Quality: Aching, stabbing, sharp, dull, sore, heavy, with occasional tearing sensations. - Severity: 4-7/10 in morning and evenings, during daytime -10/24 - Location: Right hip, lateral hip, and right groin - Exacerbating Factors: Standing up straight, leaning back, walking, external and internal rotations - Relieving Factors: Rest, oxycodone, activity modifications - Interference: Pain is particularly bad when getting up in the morning and affects sleep - Affect: Pain impacts sleep, requiring adjustments such as using a pillow between knees - Analgesia: Currently using ibuprofen, Tylenol, oxycodone for pain management - Adverse Effects: None reported - Activities of Daily Living: Pain affects ability to stand and move comfortably, particularly in the morning - Aberrant Drug Related Behaviors: None reported [facility] Medical History Primary cancer of right upper lobe of lung Adenocarcinoma of right lung Hx of diabetes mellitus Vitamin D deficiency Multiple pulmonary nodules Smoker Low testosterone Lumbar degenerative disc disease Bipolar 1 disorder Impulse disorder Hyperlipemia HTN (hypertension) Surgical History S/P lobectomy of lung H/O microdiscectomy S/P total knee arthroplasty S/P removal of lung S/P knee surgery S/P carpal tunnel release Review of Systems Const Details: - Musculoskeletal: Reports intermittent right hip pain, rated 2/10, which occasionally radiates to the groin. - Reports pain with external rotation of the right hip but denies pain with internal rotation. - Respiratory: Denies any breathing problems or coughing. - Constitutional: Denies any other changes since his last visit. All systems reviewed & are unremarkable except as noted in HPI and below Physical Exam Vital Signs: Last Vital Signs Pulse 76 07/04/25 14:55 BP 159/77 H 07/04/25 14:55 Pulse Ox 98 07/04/25 14:55 Oxygen Delivery Method Room Air 07/04/25 14:55 BMI result Body Mass Index 30.7 General: Appears afebrile. Alert and oriented. Mood and affect appropriate. Follows and participates in conversation appropriately. Respiratory effort is unlabored. No cough. Able to transition from sit to stand unassisted. Ambulates with bilaterally normal heel strike and toe off. Back/Spine/Pelvis Other: Examination of the right hip reveals pain with external rotation, though it is noted to be less severe than before. Internal rotation of the right hip is non-painful. Extrem General: Yes capillary refill normal, Yes no clubbing, cyanosis or edema and Yes no calf tenderness Results Reviewed Results Reviewed: Assessment & Plan Assessment & Plan (1) Right hip pain: Code(s): M25.551 - Pain in right hip Category: Medical (2) Osteoarthritis of right hip: Code(s): M16.11 - Unilateral primary osteoarthritis, right hip Category: Medical (3) Avascular necrosis of bones of both hips: Code(s): M87.051 - Idiopathic aseptic necrosis of right femur; M87.052 - Idiopathic aseptic necrosis of left femur Category: Medical Plan The plan is to continue monitoring the patient's chronic right hip pain, which has responded well to a recent intra-articular injection. He will continue to manage symptoms with ibuprofen as needed. He is eligible for a repeat injection not earlier than 3 months and will notify our office when his symptoms return to baseline. Regarding his Oncologic care, he is planning to proceed with his scheduled body scan at the end of August. To address potential high costs due to a change in his insurance, he is considering using a stand-alone imaging facility like [facility] and to discuss this with his Oncologist. All questions and concerns have been answered and patient agreed with the treatment plan. Follow up as needed. Patient was informed and verbally consented to the use of an ambient scribe for clinic note documentation during this visit. Coding Level of Care Code Est Pt Level 3 (54698) Complex EM visit Add On G2211 Diagnoses Right hip pain M25.551 Osteoarthritis of right hip M16.11 Avascular necrosis of bones of both hips M87.051; M87.052
[2025-07-04 14:55] VITALS: BP 159/77; PULSE 76; O2SAT 98; BMI 30.7
--- OUTSIDE RECORDS SUMMARY | 2025-07-05 12:39 | XMS_ITS | Encounter Summary ---
Author Organization [facility] Address [address] [place] [address] Care Team Providers Care Admissions Manager Rn Name Role Phone Phan Rojo Primary Care Provider [phone] Encounter Details Date Type Department Care Team (Late Contact Info) Description 01/03/2025 Lab Requisition [facility] - Main Lab [address] [facility] [place] [address] Pam Tong NP [address] [place] [phone] Pain in throat Social History Tobacco Use [...] Department Care Team (Late Contact Info) Description 07/12/2025 3:15 PM EST Office Visit [facility] [address] [place] [address] Esau Stevens MD [address] [place] [phone] 07/14/2025 8:00 AM EST Appointment [facility] [address] [place] [address] [address] [place] [phone] 08/03/2025 3:15 PM EST Office Visit [facility] [address] [place] [phone] Esau Stevens MD [address] [place] [phone] 08/24/2025 3:00 PM EST Office Visit [facility] [address] [place] [phone] Esau Stevens MD [address] [place] [phone] 08/29/2025 2:45 PM EST Ancillary Procedure Pulmonology - [address] [phone] 08/29/2025 3:30 PM EST Office Visit Pulmonology - [address] [phone] Jessica Magana MD [address] [place] [phone] 2025 3:00 PM EST Appointment [facility] [address] [place] [phone] Keesha Keyes NP [address] [place] [phone] documented as of this encounter Procedures Procedure Name Priority Date/Time Associated Diagnosis Comments CULTURE THROAT Routine 01/03/2025 11:00 AM EDT Pain in throat documented in this encounter Results * Culture throat (01/03/2025 11:00 AM EDT) Culture, Throat No pathogens isolated. 01/05/2025 10:54 AM EDT [facility] Swab Structure of anterior region of neck / Unknown 01/03/2025 11:00 AM EDT 01/03/2025 3:00 PM EDT us Orozco Tong PLANT OPERATOR LAB MICROBIOLOGY - GENERAL ORDER JACKLYN Final Result [facility] [address] [place] [address], documented in this encounter Visit Diagnoses Diagnosis Pain in throat Throat pain documented in this encounter Additional Health Concerns Assessment Noted Time PHQ-9 Depression Total Score: 0 09/23/19 25 8:00 AM EST documented as of this encounter Care Teams Admissions Manager Rn Relationship Specialty Start Date End Date Phan Rojo DO [address] [place] [phone] PCP - General Internal Medicine 08/13/20 documented as of this encounter
--- OUTSIDE RECORDS SUMMARY | 2025-07-05 12:39 | XMS_ITS ---
Author Organization [facility] Address [address] [place] [address] Care Team Providers Care Noodle Maker Name Role Phone GeorginaPhan rueda Primary Care Provider [phone] Active Problems Problem Noted Date Diagnosed Date Adenocarcinoma of right lung, stage 4 03/10/2024 Current Oncology Plans [facility] OP PEMETREXED + CARBOPLATIN + PEMBROLIZUMAB X [...] treatments are documented for this patient in [facility]. Treatments may have been administered in another system.
--- OUTSIDE RECORDS SUMMARY | 2025-07-05 12:39 | XMS_ITS ---
Author Organization [facility] Address [address] [place] [address] Phone Care Team Providers Care Wire Straightener Name Role Phone Phan Rojo DO Primary Care Provider [phone] Active Problems Problem Noted Date Diagnosed Date Adenocarcinoma of right lung , stage 4 (CMS/HCC V24, CMS/HCC V28) 03/10/2024 Primary cancer of right uppe r lobe of lung (CMS/HCC V24, CMS/HCC V28) 01/14/2024 Overview (05/04/2024): Last Assessment & Plan: Mr. Moore is a 53 yr. Male status post VATS [place] right pleural biopsy, mediastinal lymphadenectomy which was performed at [facility] on 02/15/2024 for a biopsy-proven adenocarcinoma of [...] Goal Episode Provider 05/01/2025 05/09/2025 Lung Palliative Josiah Kohli MD * Linked Problems Treatment Courses* Course 1 05/01/2025 - 05/09/2025 Treatment Sites Treatment Period Fraction Dose Fractions Total Dose R Lung 05/01/2025 - 05/09/2025 750 / 750 cGy 7 / 8 5,250 / 6,000 cGy
--- OUTSIDE RECORDS SUMMARY | 2025-07-05 12:39 | XMS_ITS | Clinical Summary ---
Author Organization [facility] Address [address] [place], [place] [id number] Care Team Providers Care Information Technology Assistant Name Role Phone Phan Rojo DO Primary Care Provider [phone] Allergies Active Allergy Reactions Criticality Noted Date [...] age to complete this topic Care Teams Information Technology Assistant Relationship Specialty Start Date End Date Phan Rojo DO [address] [place] [phone] PCP - General Internal Medicine 09/06/20
--- OUTSIDE RECORDS SUMMARY | 2025-07-05 12:39 | XMS_ITS | Clinical Summary ---
Author Organization [facility] Address [address] [place] [address] Phone Care Team Providers Care Feed Crusher Name Role Phone Phan Rojo DO Primary Care Provider [phone] Allergies Active Allergy Reactions Criticality Noted Date [...] by mouth 1 (one) time each day. 0 Active clonazePAM (KlonoPIN) 0.5 mg tablet Take 1 tablet (0.5 mg total) by mouth 2 times daily as needed. Active divalproex (DEPAKOTE) [address] tablet Take 2 tablets (1,000 mg total) by mouth 1 (one) time each day. Active lovastatin (MEVACOR) 20 mg tablet Take 1 tablet (20 mg total) by mouth. Active lisinopriL (PRINIVIL,ZESTR IL) 10 mg tablet Take 1 tablet (10 mg total) by mouth 1 (one) time each day. Active acetaminophen (TYLENOL) 500 mg tablet Take 2 tablets (1,000 mg total) by mouth every 6 (six) hours if needed for mild pain. Active folic acid (FOLVITE) 1 mg tablet TAKE 1 TABLET BY MOUTH EVERY DAY 90 tablet 1 5 Active albuterol HFA (PROAIR HFA ; PROVENTIL HFA ; VENTOLIN HFA) 90 mcg/actuation inhaler Inhale 2 puffs by mouth every 6 (six) hours if needed for wheezing or shortness of breath. 3 each 3 5 02/29/20 26 Active oxyCODONE (ROXICODONE) 5 mg immediate release tabletIndicatio ns:Adenocarcino ma of right lung, stage 4 (CMS/HCC V24, CMS/HCC V28) Take 1 tablet (5 mg total) by mouth every 6 (six) hours if needed for severe pain. Cancer patient with pain, partial fill allowed Max Daily Amount: 20 mg 80 tablet 5 Active Active Problems Problem Noted Date Diagnosed Date Adenocarcinoma of right lung , stage 4 (CMS/HCC V24, CMS/HCC V28) 03/10/2024 Primary cancer of right uppe r lobe of lung (CMS/HCC V24, CMS/HCC V28) 01/14/2024 Overview (05/04/2024): Last Assessment & Plan: Mr. Moore is a 53 yr. Male status post VATS [place] right pleural biopsy, mediastinal lymphadenectomy which was performed at [facility] on 02/15/2024 for a biopsy-proven adenocarcinoma [...] Encounters Date Type Department Care Team Description 06/23/2025 7:48 AM EST - 06/23/2025 11:59 PM EST Hospital Encounter [facility] Infusion [facility] [address] [place] [phone] Esau Stevens MD Adenocarcinoma of right lung, stage 4 (CMS/HCC V24, CMS/HCC V28) (Primary Dx) Discharge Disposition: Home or Self Care 06/22/2025 3:30 PM EST Office Visit [facility] Hematology Oncology [address] [place] [phone] Esau Stevens MD Primary cancer of right upper lobe of lung (CMS/HCC V24, CMS/HCC V28) (Primary Dx); Adenocarcinoma of right lung, stage 4 (CMS/HCC V24, CMS/HCC V28) 06/22/2025 3:10 PM EST Lab Draw Station - [address] [phone] Adenocarcinoma of right lung, stage 4 (CMS/HCC V24, CMS/HCC V28) 06/16/2025 Telephone [facility] Hematology Oncology [address] [place] [phone] Lucinda Hamilton [place] 06/15/2025 3:15 PM EDT - 06/15/2025 11:59 PM EDT Hospital Encounter [facility] Radiation Oncology [address] [place] [phone] Keesha Keyes, BRANDI Adenocarcinoma of right lung, stage 4 (CMS/HCC V24, CMS/HCC V28) (Primary Dx) Discharge Disposition: Home or Self Care 06/02/2025 7:51 AM EDT - 06/02/2025 11:59 PM EDT Hospital Encounter [facility] [address] [place] [phone] Adenocarcinoma of right lung, stage 4 (CMS/HCC V24, CMS/HCC V28) (Primary Dx) Discharge Disposition: Home or Self Care 06/01/2025 3:00 PM EDT Office Visit [facility] Hematology Oncology [address] [place] [phone] Esau Stevens MD Primary cancer of right upper lobe of lung (CMS/HCC V24, CMS/HCC V28) (Primary Dx) 05/12/2025 7:48 AM EDT - 05/12/2025 11:59 PM EDT Hospital Encounter [facility] [address] [place] [phone] Esau Stevens MD Adenocarcinoma of right lung, stage 4 (CMS/HCC V24, CMS/HCC V28) (Primary Dx) Discharge Disposition: Home or Self Care 05/11/2025 9:30 AM EDT Office Visit [facility] Hematology Oncology [address] [place] [phone] Esau Stevens MD Adenocarcinoma of right lung, stage 4 (CMS/HCC V24, CMS/HCC V28) (Primary Dx); Primary cancer of right upper lobe of lung (CMS/HCC V24, CMS/HCC V28) 05/10/2025 7:40 AM EDT - 05/10/2025 11:59 PM EDT Hospital Encounter [facility] Radiation Oncology [address] [place] [phone] Josiah Kohli MD Adenocarcinoma of right lung, stage 4 (CMS/HCC V24, CMS/HCC V28) (Primary Dx) Discharge Disposition: Home or Self Care 05/10/2025 7:19 AM EDT - 05/10/2025 11:59 PM EDT Hospital Encounter [facility] Radiation Oncology [address] [place] [phone] Josiah Kohli MD Discharge Disposition: Home or Self Care 05/09/2025 7:20 AM EDT - 05/09/2025 11:59 PM EDT Hospital Encounter [facility] Radiation Oncology [address] [place] [phone] Discharge Disposition: Home or Self Care 05/08/2025 7:25 AM EDT - 05/08/2025 11:59 PM EDT Hospital Encounter [facility] Radiation Oncology [address] [place] [phone] Discharge Disposition: Home or Self Care 05/05/2025 7:21 AM EDT - 05/05/2025 11:59 PM EDT Hospital Encounter [facility] Radiation Oncology [address] [place] [phone] Discharge Disposition: Home or Self Care 05/04/2025 3:31 PM EDT - 05/04/2025 11:59 PM EDT Hospital Encounter [facility] Radiation Oncology [address] [place] [phone] Josiah Kohli MD Adenocarcinoma of right lung, stage 4 (CMS/HCC V24, CMS/HCC V28) (Primary Dx) Discharge Disposition: Home or Self Care 05/04/2025 3:16 PM EDT - 05/04/2025 11:59 PM EDT Hospital Encounter [facility] Radiation Oncology [address] [place] [phone] Discharge Disposition: Home or Self Care 05/03/2025 3:23 PM EDT - 05/03/2025 11:59 PM EDT Hospital Encounter [facility] Radiation Oncology [address] [place] [phone] Discharge Disposition: Home or Self Care 05/02/2025 7:30 AM EDT - 05/02/2025 11:59 PM EDT Hospital Encounter [facility] Radiation Oncology [address] [place] [phone] Discharge Disposition: Home or Self Care 05/01/2025 7:35 AM EDT - 05/01/2025 11:59 PM EDT Hospital Encounter [facility] Radiation Oncology [address] [place] [phone] Josiah Kohli MD Discharge Disposition: Home or Self Care 05/01/2025 7:20 AM EDT - 05/01/2025 11:59 PM EDT Hospital Encounter [facility] Radiation Oncology [address] [place] [phone] Discharge Disposition: Home or Self Care 04/28/2025 11:20 AM EDT - 04/28/2025 11:59 PM EDT Hospital Encounter [facility] Radiation Oncology [address] [place] [phone] Discharge Disposition: Home or Self Care 04/21/2025 7:51 AM EDT - 04/21/2025 11:59 PM EDT Hospital Encounter [facility] [address] [place] [phone] Esau Stevens MD Adenocarcinoma of right lung, stage 4 (CMS/HCC V24, CMS/HCC V28) (Primary Dx) Discharge Disposition: Home or Self Care 04/20/2025 3:30 PM EDT Office Visit [facility] Hematology Oncology [address] [place] [phone] Esau Stevens MD Adenocarcinoma of right lung, stage 4 (CMS/HCC V24, CMS/HCC V28) (Primary Dx); Primary cancer of right upper lobe of lung (CMS/HCC V24, CMS/HCC V28) 04/20/2025 12:58 PM EDT - 04/20/2025 11:59 PM EDT Hospital Encounter [facility] Radiation Oncology [address] [place] [phone] Estefania Guevara MD Adenocarcinoma of right lung, stage 4 (CMS/HCC V24, CMS/HCC V28) Discharge Disposition: Home or Self Care 04/20/2025 12:12 PM EDT - 04/20/2025 11:59 PM EDT Hospital Encounter [facility] Radiation Oncology [address] [place] [phone] Adenocarcinoma of right lung, stage 4 (CMS/HCC V24, CMS/HCC V28) (Primary Dx) Discharge Disposition: Home or Self Care 04/13/2025 8:23 AM EDT - 04/13/2025 11:59 PM EDT Hospital Encounter [facility] Radiation Oncology [address] [place] [phone] Estefania Guevara MD Adenocarcinoma of right lung, stage 4 ([facility] V24, [facility] V28) (Primary Dx) Discharge Disposition: Home or Self Care 04/13/2025 8:23 AM EDT - 04/13/2025 11:59 PM EDT Hospital Encounter [facility] Radiation Oncology [address] [place] [phone] Discharge Disposition: Home or Self Care 04/06/2025 Telephone [facility] Radiation Oncology [address] [place] [phone] Edwige Rhodes MA from Last 3 Months Surgical History Surgery Date Site/Laterality Comments CARPAL TUNNEL RELEASE Left PROCEDURE: LA NEUROPLASTY &/TRANSPOS MEDIAN NRV CARPAL TUNNE; COMMENT: x2 OTHER SURGICAL HISTORY Right PROCEDURE: LA ANESTH OPEN/SURG ARTHRS TOTAL KNEE ARTHROPLASTY OTHER SURGICAL HISTORY PROCEDURE: LA DISCECTOMY ANT DCMPRN CORD CERVICAL 1 NTRSPC; COMMENT: microdiscectomy OTHER SURGICAL HISTORY 02/15/2024 Right PROCEDURE: LA THORACOSCOPY W/LOBECTOMY SINGLE LOBE; COMMENT: RUL Lobectomy KNEE DISLOCATION SURGERY 1986 PROCEDURE:KNEE DISLOCATION SURGERY OTHER SURGICAL HISTORY 2021 PROCEDURE:ENDOSCOPIC MICRODISCECTOMY LUMBAR WRIST SURGERY 2020 PROCEDURE:WRIST SURGERY LUNG REMOVAL, PARTIAL PROCEDURE:LUNG REMOVAL, PARTIAL Medical History Medical History Date Comments Essential hypertension DX:Essent ial hypertension Hyperlipidemia DX:Hyperlipidemi a Asthma DX:Asthma Bipolar 1 disorder ([facility] V24, [facility] V28) DX:Bipolar 1 disorder (HCC) Ascending aorta dilation ([facility] V24) DX:Ascending aorta dilation (HCC) Diastolic heart failure ([facility] V24, [facility] V28) DX:Diastolic heart failure ( HCC) Primary cancer of right uppe r lobe of lung ([facility] V24, [facility] V28) 01/14/2024 DX:Primary cancer of r ight upper lobe of lung (HCC) COPD (chronic obstructive pu lmonary disease) ([facility] V24, [facility] V28) DX:COPD (chronic o bstructive pulmonary disease) (HCC) Hypertension DX:Hypertension Depression DX:Depression Family History Medical [...] Sign Reading Time Taken Comments Blood Pressure 118/56 06/23/2025 8:09 AM EST Pulse 77 06/23/2025 8:09 AM EST Temperature 36.7 C (98 F) 06/23/2025 8:09 AM EST Respiratory Rate 16 06/15/2025 3:22 PM EDT Oxygen Saturation 99% 06/23/2025 8:09 AM EST Inhaled Oxygen Concentration - - Weight 94.2 kg (207 lb 9.6 oz) 06/23/2025 8:09 A M EST Height 175.3 cm (5' 9 ) 06/15/2025 3:22 PM EDT Body Mass Index 30.66 06/15/2025 3:22 PM EDT Plan of Treatment Upcoming Encounters Date Type Department Care Team (Late st Contact Info) Description 07/12/2025 3:15 PM EST Office Visit [facility] Hematology Oncology [address] [place] [phone] Esau Stevens MD [address] [place] [phone] 07/14/2025 8:00 AM EST Appointment [facility] [address] [phone] 08/03/2025 3:15 PM EST Office Visit [facility] Hematology Oncology [address] [place] [phone] Esau Stevens MD [address] [place] [phone] 08/24/2025 3:00 PM EST Office Visit [facility] Hematology Oncology [address] [place] [phone] Esau Stevens MD [address] [place] [phone] 08/29/2025 2:45 PM EST Ancillary Procedure Pulmonology - [address] [phone] 08/29/2025 3:30 PM EST Office Visit Pulmonology [address] [phone] Jessica Magana MD [address] [place] [phone] 2025 3:00 PM EST Appointment [facility] Radiation Oncology [address] [place] [phone] Keesha Keyes NP [address] [place] [phone] Health Maintenance Due Date Last Done Comments [...] (#1) 2025 Hypertension/CHF/CAD Annual BMP Blood Test 06/22/2026 06/22/2025, 06/01/2025, 05/11/2025, Additional history exists Cholesterol Screening (Lipid Panel) [...] Diagnosis Comments CBC WITH AUTO DIFFERENTIAL Routine 06/22/2025 3:18 PM EST Adenocarcinoma of right lung, stage 4 (CMS/HCC V24, CMS/HCC V28) THYROID STIMULATING HORMONE Routine 06/22/2025 3:18 PM EST Adenocarcinoma of right lung, stage 4 (CMS/HCC V24, CMS/HCC V28) COMPREHENSIVE METABOLIC PANEL Routine 06/22/2025 3:18 PM EST Adenocarcinoma of right lung, stage 4 (CMS/HCC V24, CMS/HCC V28) CBC AND DIFFERENTIAL Routine 06/22/2025 3:18 PM EST Adenocarcinoma of right lung, stage 4 (CMS/HCC V24, CMS/HCC V28) CBC WITH AUTO DIFFERENTIAL Routine 06/01/2025 3:37 [...] EDT Routine general medical examination at a health care facility HLD (hyperlipidemia) HTN (hypertension) Lung calcification COPD (chronic obstructive pulmonary disease) (CMS/HCC V24, CMS/HCC V28) Bipolar 1 disorder (CMS/HCC V24, CMS/HCC V28) from Last 3 Months or Most Recently Relevant to Health Maintenance Results * (ABNORMAL) CBC auto differential (06/22/2025 3:18 PM EST) Only the most recent of4 resultswithin the time period is included. WBC 7.8 4.8 - 10.8 K/mcL LAB HEMETOLOGY METHOD 06/22/2025 4:40 PM [facility] RBC 4.90 4.50 - 5.50 M/mcL LAB HEMETOLOGY METHOD 06/22/2025 4:40 PM [facility] Hemoglobin 14.6 13.5 - 17.5 g/dL LAB HEMETOLOGY METHOD 06/22/2025 4:40 PM [facility] Hematocrit 43.0 42.0 - 54.0 % LAB HEMETOLOGY METHOD 06/22/2025 4:40 PM [facility] MCV 87.2 79.0 - 98.0 FL LAB HEMETOLOGY METHOD 06/22/2025 4:40 PM [facility] MCH 29.6 27.0 - 32.0 pcg LAB HEMETOLOGY METHOD 06/22/2025 4:40 PM [facility] MCHC 34.0 32.0 - 37.0 g/dL LAB HEMETOLOGY METHOD 06/22/2025 4:40 PM [facility] RDW 14.3 11.0 - 15.0 % LAB HEMETOLOGY METHOD 06/22/2025 4:40 PM [facility] Platelets 307 130 - 400 K/mcL LAB HEMETOLOGY METHOD 06/22/2025 4:40 PM [facility] MPV 9.4 7.0 - 11.0 FL LAB HEMETOLOGY METHOD 06/22/2025 4:40 PM [facility] NRBC 0.0 <1.0 % LAB HEMETOLOGY METHOD 06/22/2025 4:40 PM [facility] NRBC Absolute 0.00 <0.10 K/mcL LAB HEMETOLOGY METHOD 06/22/2025 4:40 PM [facility] Neutrophils Relative 57.8 % LAB HEMETOLOGY METHOD 06/22/2025 4:40 PM [facility] Lymphocytes Relative 27.1 % LAB HEMETOLOGY METHOD 06/22/2025 4:40 PM [facility] Monocytes Relative 11.3 % LAB HEMETOLOGY METHOD 06/22/2025 4:40 PM [facility] Eosinophils Relative 2.3 % LAB HEMETOLOGY METHOD 06/22/2025 4:40 PM [facility] Basophils Relative 0.6 % LAB HEMETOLOGY METHOD 06/22/2025 4:40 PM [facility] Immature Granulocytes Relative 0.9 % LAB HEMETOLOGY METHOD 06/22/2025 4:40 PM [facility] Neutrophils Absolute 4.51 1.50 - 7.00 K/mcL LAB HEMETOLOGY METHOD 06/22/2025 4:40 PM [facility] Lymphocytes Absolute 2.12 1.00 - 5.00 K/mcL LAB HEMETOLOGY METHOD 06/22/2025 4:40 PM [facility] Monocytes Absolute 0.88 0.20 - 1.00 K/mcL LAB HEMETOLOGY METHOD 06/22/2025 4:40 PM [facility] Eosinophils Absolute 0.18 0.00 - 0.50 K/mcL LAB HEMETOLOGY METHOD 06/22/2025 4:40 PM [facility] Basophils Absolute 0.05 0.00 - 0.20 K/mcL LAB HEMETOLOGY METHOD 06/22/2025 4:40 PM [facility] Immature Granulocytes Absolute 0.07(H) 0.00 - 0.03 K/mcL LAB HEMETOLOGY METHOD 06/22/2025 4:40 PM [facility] Blood Venous blood specimen / Unknown Venipuncture / Unknown 06/22/2025 3:18 PM EST 06/22/2025 4:30 PM EST us Esau Stevens MD LAB BLOOD ORDERABLES Final Result Performing Organization Address [facility]/ZIP Co de Phone Number [facility] [address] [place] [address], [place] [phone] * Thyroid stimulating hormone (06/22/2025 3:18 PM EST) Only the most recent of4 resultswithin the time period is included. [facility] TSH 1.85 0.40 - 4.00 mcIU/mL LAB CHEMISTRY METHOD 06/22/2025 5:23 PM [facility] Blood Venous blood specimen / Unknown Venipuncture / Unknown 06/22/2025 3:18 PM EST 06/22/2025 4:29 PM EST Esau Stevens MD LAB BLOOD ORDERABLES Final Result Performing Organization Address [facility] Co de Phone Number [facility] [address] [place] [address], [place] [phone] * Comprehensive metabolic panel (06/22/2025 3:18 PM EST) Only the most recent of4 resultswithin the time period is included. [facility] Sodium 139 133 - 145 mmol/L LAB CHEMISTRY METHOD 06/22/2025 4:57 PM [facility] Potassium 3.7 3.5 - 5.5 mmol/L LAB CHEMISTRY METHOD 06/22/2025 4:57 PM [facility] Chloride 105 96 - 110 mmol/L LAB CHEMISTRY METHOD 06/22/2025 4:57 PM [facility] CO2 27 21 - 32 mmol/L LAB CHEMISTRY METHOD 06/22/2025 4:57 PM [facility] Anion Gap 7 3 - 11 LAB CHEMISTRY METHOD 06/22/2025 4:57 PM [facility] Glucose 91 70 - 100 mg/dL LAB CHEMISTRY METHOD 06/22/2025 4:57 PM [facility] BUN 15 5 - 25 mg/dL LAB CHEMISTRY METHOD 06/22/2025 4:57 PM [facility] Creatinine 0.86 0.70 - 1.30 mg/dL LAB CHEMISTRY METHOD 06/22/2025 4:57 PM [facility] eGFR 104 >=60 mL/min/1. 73m2 LAB CHEMISTRY METHOD 06/22/2025 4:57 PM [facility] Comment:Calculation based on the Chronic Kidney Disease Epidemiology Collaboration (CKD-EPI) equation refit without adjustment for race. BUN/Creatinine Ratio 17.4 LAB CHEMISTRY METHOD 06/22/2025 4:57 PM [facility] Calcium 9.0 8.5 - 10.5 mg/dL LAB CHEMISTRY METHOD 06/22/2025 4:57 PM [facility] AST (SGOT) 11 10 - 42 unit/L LAB CHEMISTRY METHOD 06/22/2025 4:57 PM [facility] ALT (SGPT) 33 10 - 60 unit/L LAB CHEMISTRY METHOD 06/22/2025 4:57 PM [facility] Alkaline Phosphatase 82 42 - 121 unit/L LAB CHEMISTRY METHOD 06/22/2025 4:57 PM [facility] Total Protein 6.5 6.0 - 8.0 g/dL LAB CHEMISTRY METHOD 06/22/2025 4:57 PM [facility] Albumin 3.7 3.2 - 5.0 g/dL LAB CHEMISTRY METHOD 06/22/2025 4:57 PM [facility] Total Bilirubin 0.3 0.0 - 1.4 mg/dL LAB CHEMISTRY METHOD 06/22/2025 4:57 PM [facility] Blood Venous blood specimen / Unknown Venipuncture / Unknown 06/22/2025 3:18 PM EST 06/22/2025 4:29 PM EST Esau Stevens MD LAB BLOOD ORDERABLES Final Result [facility] [address] [place] [address], * Rad Onc Msq Treatment Summary (05/09/2025 7:40 AM EDT) Pathologist [facility] Treatment Site R Lung MOSAI Q RADIATION [...] Msq Treatment Summary (05/08/2025 7:41 AM EDT) [facility] Treatment Site R Lung MOSAI Q RADIATION [...] 7:41 AM EDT Physician Radiation Oncology RADIATION ONCOLO GY ORDERABLES Final Result MOSAIQ RADIATION ONCOLOGY * Rad Onc Msq Treatment Summary (05/05/2025 7:40 AM EDT) [facility] Treatment Site R Lung MOSAI Q RADIATION [...] Msq Treatment Summary (05/04/2025 3:32 PM EDT) [facility] Treatment Site R Lung MOSAI Q RADIATION [...] 3:32 PM EDT Physician Radiation Oncology RADIATION ONCJULISSA GY ORDERABLES Final Result MOSAIQ RADIATION ONCOLOGY * Rad Onc Msq Treatment Summary (05/03/2025 3:41 PM EDT) [facility] Treatment Site R Lung MOSAI Q RADIATION [...] 3:41 PM EDT Physician Radiation Oncology RADIATION ONCJULISSA GY ORDERABLES Final Result MOSAIQ RADIATION ONCOLOGY * Rad Onc Msq Treatment Summary (05/02/2025 7:44 AM EDT) [facility] Treatment Site R Lung MOSAI Q RADIATION [...] 7:44 AM EDT Physician Radiation Oncology RADIATION ONCJULISSA GY ORDERABLES Final Result MOSAIQ RADIATION ONCOLOGY * Rad Onc Msq Treatment Summary (05/01/2025 7:55 AM EDT) Pathologist [facility] Treatment Site R Lung MOSAI Q RADIATION [...] 05/01/2025 7:55 AM EDT Physician Radiation Oncology MD RADIATION ONCOLO GY ORDERABLES Final Result [facility] RADIATION ONCOLOGY * (ABNORMAL) Lipid panel with reflex to direct LDL (11/18/2024 1:35 PM EDT) Cholesterol 195 0 - 200 mg/dL LAB CHEMISTRY METHOD 11/18/2024 3:48 PM EDT [facility] Triglycerides 174(H) 0 - 150 mg/dL LAB CHEMISTRY METHOD 11/18/2024 3:48 PM EDT [facility] HDL 48 >=40 mg/dL LAB CHEMISTRY METHOD 11/18/2024 3:48 PM EDT [facility] LDL Calculated 112(H) 0 - 100 mg/dL LAB CHEMISTRY METHOD 11/18/2024 3:48 PM EDT [facility] VLDL Cholesterol Eron 34.8 mg/dL LAB CHEMISTRY METHOD 11/18/2024 3:48 PM EDT [facility] Non HDL Chol. (LDL+VLDL) 147(H) <145 mg/dL LAB CHEMISTRY METHOD 11/18/2024 3:48 PM EDT [facility] Chol/HDL Ratio 4.1 0.0 - 4.4 LAB CHEMISTRY METHOD 11/18/2024 3:48 PM EDT [facility] Blood Venous blood specimen / Unknown Venipuncture / Unknown 11/18/2024 1:35 PM EDT 11/18/2024 1:35 PM EDT us Orozco Tong [employer] LAB BLOOD ORDERABLES Final Resul t [facility] [address] [place] [address], [place] [phone] from Last 3 Months or Most Recently Relevant to Health Maintenance Insurance [employer] Advance Directives Documents on File Type Date Recorded Patient Counter Tender Expl anation Health Care Decision (hx) 02/15/2024 [...] 02/15/2024 HE [facility] [employer]OXY Care Teams Feed Crusher Relationship Specialty Start Date End Date Phan Rojo DO [address] [place] [phone] PCP - General Internal Medicine 08/13/20
--- OUTSIDE RECORDS SUMMARY | 2025-07-05 12:39 | XMS_ITS | Encounter Summary ---
Author Organization [facility] Address [address] [place] [address] Care Team Providers Care Farm Mortgage Agent Name Role Phone Phan Rojo DO Primary Care Provider [phone] Encounter Details Date Type Department Care Team Description 03/18/2024 Social Work [facility] [address] [place] [id number] Tip Younger [facility] Social History Tobacco Use Types Packs/Day Years [...] on filedocumented in this encounter Care Teams Farm Mortgage Agent Relationship Specialty Start Date End Date Phan Rojo DO [address] [place] [id number] PCP - General Internal Medicine 09/06/20 documented as of this encounter
== END 2025-07-04 15:08 | disposition home or self-care (01) ==
LOC: HO.PMC 14:47
PROVIDERS: PCP Internal Medicine; Visit Provider Nurse Practitioner Family
DX: M25.551 Pain in right hip (principal); M16.11 Unilateral primary osteoarthritis, right hip; M87.051 Idiopathic aseptic necrosis of right femur; M87.052 Idiopathic aseptic necrosis of left femur
CPT/HCPCS: 99213